=== PATIENT | male | born 1955 | race Hispanic/Latino ===

== ENCOUNTER 2020-09-27 20:17 | Inpatient (IN) | payer MEDICARE ==
[2020-09-27 20:53] LABS: Bacteria/HPF None Seen HPF (None Seen); Bilirubin Negative (Negative); Blood, Urine Trace (Negative); Clarity Clear (Clear); Glucose, Urine (Dipstick) Greater than 1000 mg/dL (Negative); Ketone, Urine Negative (Negative); Leukocyte Negative Leu/uL (Negative); Nitrite Negative (Negative); Protein, Urine (Dipstick) 200 mg/dL (Neg-Trace); RBC/HPF 0-3 HPF (0-3); Specific Gravity, Urine 1.021 (1.002-1.036); Squamous Epithelial None Seen HPF (0-3); Urobilinogen Normal mg/dL (Less than 2); WBC/HPF 0-3 HPF (0-3); pH, Urine 6.5 (5.0-9.0)
[2020-09-27 20:57] LABS: #Basophils 0.1 thou/uL (0.0-0.2); #Eosinphils 0.2 thou/uL (0.0-0.7); #Lymphocytes 1.8 thou/uL (1.20-3.40); #Monocytes 0.6 thou/uL (0.11-0.59); #Neutrophils 4.7 thou/uL (1.40-6.50); %Basophils 1.2 % (0.0-1.0); %Eosinophils 3.3 % (0.0-10.0); %Lymphocytes 24.7 % (21.0-51.0); %Monocytes 8.4 % (0.0-10.0); %Neutrophils 62.5 % (42.0-75.0); Hemoglobin 14.4 g/dL (14.0-18.0); Mean Corpuscular Hemoglobin 30.6 pg (27.0-31.0); Mean Corpuscular Volume 90.1 fL (78.0-98.0); Mean Platelet Volume 9.5 fL (7.4-10.4); Platelet Count 209 thou/uL (130-400); White Blood Cell (WBC) Count 7.5 thou/uL (4.8-10.8)
--- NOTE | 2020-09-27 20:57 | RAD ---
EXAM: Single view of the chest HISTORY: Altered mental status and high blood glucose COMPARISON: 06/11/2003 FINDINGS: Single view of the chest shows a normal sized cardiomediastinal silhouette. There is no lizz dence of consolidation, mass, or pleural effusion. Degenerative changes are seen in the spine. IMPRESSION: No evidence of acute cardiopulmonary disease
[2020-09-27 21:04] LABS: INR-International Normal Ratio 0.9; PTT 27.6 sec (22.9-36.1); Prothrombin Time 12.3 sec (12.0-14.7)
[2020-09-27 21:08] LABS: Amphetamine Not Detected (NotDetected); Barbiturates Screen Not Detected (NotDetected); Benzodiazepine Screen Not Detected (NotDetected); Cocaine Metabolite Screen Not Detected (NotDetected); Medtox Control Line Valid? VALID (VALID); Medtox Reader # READER 4; Methadone Not Detected (NotDetected); Methamphetamine Not Detected (NotDetected); Opiate Screen Not Detected (NotDetected); Oxycodone Screen Not Detected (NotDetected); Phencyclidine (PCP) Not Detected (NotDetected); THC/Cannabinoid Screen Not Detected (NotDetected); Tricyclic Screen Not Detected (NotDetected)
--- NOTE | 2020-09-27 21:08 | CT ---
EXAM: CT brain without contrast HISTORY: Fall and altered mental status COMPARISON: MRI brain 07/16/2020 TECHNIQUE: Multiple contiguous axial images were obtained and a CT of the brain without contrast. FINDINGS: There are scattered hypodensities in the subcortical and periventricular white matter consi stent with small vessel ischemic disease. There is no evidence of hydrocephalus, intracranial hemorrhage, or extra-axial fluid collection. The calvarium and overlying soft tissues are unremarkable. The visualized paranasal sinuses and masto id air cells are well aerated. IMPRESSION: No evidence of acute intracranial abnormality
[2020-09-27 21:16] LABS: ALT (SGPT) 15 U/L (8-55); AST (SGOT) 15 U/L (5-34); Albumin 2.9 g/dL (3.4-4.8); Alkaline Phosphatase 117 U/L (40-110); Anion Gap 17 mmol/L (10-20); BUN (Urea Nitrogen) 19 mg/dL (8.4-25.7); Bilirubin, Total 0.3 mg/dL (0.2-1.2); Calc. Creatinine Clearance 0 mL/min (70-130); Calcium 8.2 mg/dL (7.8-10.44); Carbon Dioxide 18 mmol/L (23-31); Chloride 101 mmol/L (98-107); Estimated GFR-MDRD 37; Globulin 3.2 g/dL (2.4-3.5); Protein, Total 6.1 g/dL (5.8-8.1); Sodium 132 mmol/L (136-145)
[2020-09-27 21:19] LABS: Acetaminophen Less than 6.0 mcg/mL (10.0-30.0); Alcohol Less than 10 mg/dL (Less than 10); CK (CPK) 62 U/L (30-200); Salicylate Less than 8.0 mg/dL (15.0-30.0)
[2020-09-27 21:26] LABS: Glucose 748 mg/dL (80-115)
[2020-09-27 21:57] LABS: Actual Bicarbonate (HCO3v) 16 mEq/L (22-28); Analyzer IN Cardio ER; Base Excess -6.9 mEq/L (-2.0 to +3.0); Calcium, Ionized (venous) 1.02 mmol/L (1.16-1.32); Chloride (VBG) 104 mmol/L (98-106); Hemoglobin (Hb) 15.1 g/dL (12.6-17.4); Potassium (VBG) 3.93 mmol/L (3.70-5.30); Sodium 130.7 mmol/L (133-146); pH (venous) 7.41 (7.32-7.43)
[2020-09-27] MEDS ORDERED: INSULIN REGULAR IN 0.9 % NACL 100 UNIT/100 ML BAG ONE (22:09)
[2020-09-27] MEDS ORDERED: Labetalol HCl 100 MG/20 ML VIAL ONE (22:09)
[2020-09-27] MEDS ORDERED: Insulin Regular 300 UNITS/3 ML VIAL ONE (22:09)
[2020-09-27] MEDS ORDERED: Sodium Chloride 0.9% 1,000 ML IV PRN ×4 (22:14)
[2020-09-27] MEDS ORDERED: Dextrose 5 %-0.45 % NaCl 1,000 ML IV PRN (22:14)
[2020-09-27] MEDS ORDERED: NS 0.9% w/ 20 MEQ KCL 1,000 ML IV PRN ×2 (22:14)
[2020-09-27] MEDS ORDERED: Electrolyte Replacement Protoc 1 EACH EACH IVPB SCH (22:14)
[2020-09-27] MEDS ORDERED: HUMULIN R 100 UNITS in Sodium Chloride 0.9% 100 ML IVPB SCH (22:15)
[2020-09-27] MEDS ORDERED: Ondansetron PF 4 MG/2 ML Vial IVP PRN (22:16)
--- NOTE | 2020-09-27 22:26 | PDOC.BPN ---
- Brief Progress Note Encounter Date: 09/27/20 [id number] dictated
[2020-09-27 23:30] LABS: Lactic Acid 2.8 mmol/L (0.5-2.2)
[2020-09-27 23:31] LABS: Anion Gap 13 mmol/L (10-20); BUN (Urea Nitrogen) 18 mg/dL (8.4-25.7); Calc. Creatinine Clearance 0 mL/min (70-130); Calcium 7.9 mg/dL (7.8-10.44); Carbon Dioxide 19 mmol/L (23-31); Chloride 106 mmol/L (98-107); Estimated GFR-MDRD 42; Glucose 608 mg/dL (80-115); Potassium 3.7 mmol/L (3.5-5.1); Sodium 134 mmol/L (136-145)
[2020-09-27 23:50] LABS: Glucose 593 mg/dL (80-115)
--- NOTE | 2020-09-28 00:07 | HP ---
CHIEF COMPLAINT: Unresponsive. HISTORY OF PRESENT ILLNESS: Mr. 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 The patient's blood sugar was greater than 600. IV was placed and IV fluids was given. The patient also was found to be profoundly hypertensive, nitroglycerin paste was applied. The patient was tachycardic. The patient was afebrile with normal respiratory rate and oxygen saturation. On arrival to the emergency room, the patient was only arousable to voice. In the emergency room, initial blood pressure was 207/155, latest blood pressure is 153/92, lactic acid was elevated at 4.2, sodium is 132, glucose was 748, creatinine 1.86, anion gap is 17. CT of the brain was done, no acute finding. Urinalysis was positive for protein, glucose, and trace blood, otherwise unremarkable. The patient is still lethargic, but able to answer simple questions, slightly confused. IV fluids continued. The patient was given insulin in the emergency room. The patient is being admitted to the hospital for further management. PAST MEDICAL HISTORY: As mentioned above in the history of present illness. PAST SURGICAL HISTORY: 1. Cataract and glaucoma surgeries. 2. LASIK eye surgery, bilateral. SOCIAL HISTORY: No history of smoking, drug use, or alcohol abuse. Lives at home with family. HOME MEDICATIONS: Please see home medication reconciliation form for updated medications. ALLERGIES: ALLERGIC TO LEVEMIR FLEXPEN, TRULICITY, VICTOZA, AND FARXIGA. REVIEW OF SYSTEMS: Unable to obtain. The patient currently is lethargic, slightly confused. PHYSICAL EXAMINATION: GENERAL: The patient is lethargic, slightly confused. VITAL SIGNS: Blood pressure 153/92, pulse is 96, respiratory rate 16, oxygen saturation is 99% on room air, and temperature is 98.2. HEAD AND NECK: Normocephalic and atraumatic. Neck is supple. Mucous membranes dry. CHEST: Fair bilateral air entry. HEART: S1, S2. Regular. ABDOMEN: Soft, nontender. Bowel sounds present. NEUROLOGIC: The patient is lethargic, but opening his eyes. Slightly confused, moving extremities. SKIN: No current rash. MUSCULOSKELETAL: No apparent deformity. GENITOURINARY: No suprapubic tenderness. No flank tenderness. LABORATORY DATA: As mentioned above in history of present illness. IMAGING STUDIES: As mentioned above in history of present illness. ASSESSMENT: 1. Hyperglycemic hyperosmolar diabetic state with altered mental status and decreased responsiveness. 2. Acute encephalopathy, metabolic. 3. Hypertensive urgency/emergency. 4. Coronary artery disease. 5. Right eye blindness due to diabetes. 6. Diabetic neuropathy. PLAN: 1. Admit. 2. Continue with IV fluid hydration. 3. Insulin. 4. Monitor and correct electrolytes. 5. Monitor and treat hypertension. 6. Reconcile home medications. 7. DVT prophylaxis as appropriate. 8. Expected length of stay, 2 midnights or more. 9. Case discussed with the patient's family/daughter and ED physician. Job ID: [id number]
[2020-09-28] MEDS ORDERED: Acetaminophen 325 MG TAB ONE (00:30)
[2020-09-28 01:20] LABS: Glucose 408 mg/dL (80-115); Lactic Acid 2.4 mmol/L (0.5-2.2)
[2020-09-28] MEDS: D5 1/2 NS w/20 mEq KCL 1,000 ML IV PRN ×2 (02:48→07:28)
[2020-09-28 03:27] LABS: Anion Gap 11 mmol/L (10-20); BUN (Urea Nitrogen) 17 mg/dL (8.4-25.7); Calc. Creatinine Clearance 62 mL/min (70-130); Calcium 8.1 mg/dL (7.8-10.44); Carbon Dioxide 21 mmol/L (23-31); Chloride 111 mmol/L (98-107); Estimated GFR-MDRD 50; Glucose 215 mg/dL (80-115); Potassium 3.3 mmol/L (3.5-5.1); Sodium 140 mmol/L (136-145)
[2020-09-28] MEDS ORDERED: Potassium Chloride 40 MEQ in Sodium Chloride 0.9% 250 ML 250 ML IVPB SCH (04:00)
[2020-09-28 07:22] LABS: Glucose 129 mg/dL (80-115)
[2020-09-28 07:24] LABS: Glucose 124 mg/dL (80-115)
[2020-09-28 07:28] LABS: Anion Gap 11 mmol/L (10-20); BUN (Urea Nitrogen) 16 mg/dL (8.4-25.7); Calc. Creatinine Clearance 65 mL/min (70-130); Calcium 7.9 mg/dL (7.8-10.44); Carbon Dioxide 22 mmol/L (23-31); Chloride 112 mmol/L (98-107); Estimated GFR-MDRD 53; Glucose 123 mg/dL (80-115); Potassium 3.7 mmol/L (3.5-5.1); Sodium 141 mmol/L (136-145)
[2020-09-28 08:10] LABS: Glucose 129 mg/dL (80-115)
[2020-09-28 08:56] LABS: SARS-CoV-2 MS2 Positive; SARS-CoV-2 N Gene Negative; SARS-CoV-2 S Gene Negative; SARS-CoV-2 by NAA Not Detected (NotDetected); SARS-CoV-2 orf1ab Negative
[2020-09-28] MEDS ORDERED: Famotidine/PF 20 mg/2ml Vial SLOW IVP SCH (09:00)
[2020-09-28] MEDS: Heparin 5,000 UNITS/ML VIAL SC SCH ×3 (09:37→20:05)
[2020-09-28] MEDS ORDERED: Losartan 25 MG TAB PO STA (10:07)
[2020-09-28] MEDS ORDERED: Metoprolol Tartrate 25 MG TAB PO STA (10:07)
[2020-09-28] MEDS ORDERED: HumaLOG 300 UNITS/3 ML VIAL SC PRN (10:09)
[2020-09-28] MEDS ORDERED: Dextrose 50% Abboject 50 ML SYRINGE SLOW IVP PRN (10:09)
[2020-09-28] MEDS ORDERED: Dextrose 5% in Water 1,000 ML IV PRN (10:09)
[2020-09-28] MEDS ORDERED: Metoprolol Tartrate 25 MG TAB PO SCH (11:15)
[2020-09-28] MEDS ORDERED: Losartan 25 MG TAB PO SCH (11:15)
[2020-09-28] MEDS ORDERED: Insulin Glargine 15 UNITS in Pre-Filled Syringe 1 EACH SC SCH (11:15)
[2020-09-28] MEDS: Sodium Chloride 0.9% 1,000 ML IV SCH ×2 (11:41→23:15)
--- NOTE | 2020-09-28 14:37 | PDOC.HOSPP ---
- Subjective Encounter Date: 09/28/20 Encounter Time: 10:40 Subjective: no sob, is awake and oriented well at bedside no cough or fever or abd pain or nausea - Objective Vital Signs & Weight: Vital Signs (12 hours) Temp Pulse Ox 09/28/20 12:19 98.6 F 09/28/20 07:39 97 09/28/20 07:00 98.0 F 09/28/20 03:34 97.8 F Weight Admit Weight 186 lb 6 oz Weight 186 lb 6 oz I&O: 09/27/20 09/28/20 09/29/20 06:59 06:59 06:59 Intake Total 830.5 Output Total 560 350 Balance 270.5 -350 Result Diagrams: 09/27/20 20:47 09/28/20 06:36 Additional Labs: Accuchecks 09/28/20 09/28/20 09/28/20 12:00 11:41 09:01 POC Glucose 202 H 213 H 185 H 09/28/20 09/28/20 09/28/20 08:22 07:29 06:13 POC Glucose 164 H 148 H 122 H 09/28/20 09/28/20 09/28/20 05:25 04:18 02:59 POC Glucose 79 95 145 H 09/28/20 09/28/20 09/28/20 02:14 01:28 00:27 POC Glucose 229 H 290 H 360 H 09/27/20 09/27/20 09/27/20 23:17 22:05 20:27 POC Glucose 475 H 492 H Greater than 500 H Hospitalist ROS - Medication Medications: Active Medications Generic Name Dose Route Start Last Admin Trade Name Jorgeq PRN Reason Stop Dose Admin Heparin Sodium (Porcine) 5,000 units 09/28/20 09:00 09/28/20 09:37 Heparin 5,000 Units/Ml Vial SC 5,000 units TID VIRGIL Administration Sodium Chloride 1,000 mls @ 75 mls/hr 09/28/20 10:15 09/28/20 11:41 Normal Saline 0.9% IV 09/29/20 12:54 1,000 mls .[id number] VIRGIL Administration - Exam General Appearance: awake alert Eye: anicteric sclera Eye - other findings: right eye blindness ENT: no oropharyngeal lesions, moist mucosa Neck: supple, no JVD Heart: RRR, no murmur Respiratory: no wheezes, no rales Gastrointestinal: soft, non-tender, non-distended, normal bowel sounds Extremities: no cyanosis, 1+ LE edema Neurological: cranial nerve grossly intact, no focal deficits Psychiatric: normal affect, A&O x 3 Hosp A/P (1) DM (diabetes mellitus), type 2, uncontrolled Code(s): E11.65 - TYPE 2 DIABETES MELLITUS WITH HYPERGLYCEMIA Status: Acute Qualifiers: Glycemic state: with hyperglycemia Qualified Code(s): E11.65 - Type 2 diabetes mellitus with hyperglycemia (2) HTN (hypertension) Code(s): I10 - ESSENTIAL (PRIMARY) HYPERTENSION Status: Chronic Qualifiers: Hypertension type: essential hypertension Qualified Code(s): I10 - Essential (primary) hypertension (3) CAD (coronary artery disease) Code(s): I25.10 - ATHSCL HEART DISEASE OF [place] CORONARY ARTERY W/O ANG PCTRS Status: Chronic Qualifiers: Coronary Disease-Associated Artery/Lesion type: [place] artery [place] vs. t ransplanted heart: [place] heart Associated angina: without angina Qualified Code(s): I25.10 - Atherosclerotic heart disease of [place] coronary artery without angina pectoris (4) Dyslipidemia Code(s): E78.5 - HYPERLIPIDEMIA, UNSPECIFIED Status: Chronic (5) DEN (acute kidney injury) Code(s): N17.9 - ACUTE KIDNEY FAILURE, UNSPECIFIED Status: Resolved - Plan is off insulin drip, doing well home dose dm meds, iv fluids, lipitor, cozaar, imdur hemostable transfer to med floor dc plan in am if stable to ambulate as tolerated
[2020-09-28] MEDS ORDERED: cloNIDine 0.1 MG TAB PO PRN (17:14)
[2020-09-28] MEDS ORDERED: Amlodipine 10 MG TAB PO SCH (17:15)
[2020-09-28] MEDS: metFORMIN 500 MG TAB PO SCH (18:17)
[2020-09-28] MEDS: HumaLOG 300 UNITS/3 ML VIAL SC PRN (18:18)
[2020-09-28] MEDS: Brimonidine Tartrate 0.2% Ophth Soln 5 ml Bottle EA EYE SCH ×2 (20:02)
[2020-09-28] MEDS: Metoprolol Tartrate 25 MG TAB PO SCH (20:04)
[2020-09-28] MEDS: Insulin Glargine 15 UNITS in Pre-Filled Syringe 1 EACH SC SCH (20:08)
[2020-09-28] MEDS: Dorzolamide HCl 2% Ophth Soln 10 ml Bottle EA EYE SCH (20:26)
[2020-09-28] MEDS ORDERED: hydrALAZINE 20 MG/ML VIAL SLOW IVP PRN (20:47)
[2020-09-28] MEDS ORDERED: Non-Formulary Item 1 EACH (Dorzolamide Hcl/Pf [Dorzolamide 2% Eye Drop] 10 ML Drops) OP SCH (21:00)
[2020-09-28] MEDS ORDERED: diphenhydrAMINE 25 MG CAP PO SCH (21:00)
[2020-09-28] MEDS ORDERED: Lorazepam 1 MG TAB PO SCH (21:15)
[2020-09-29] MEDS: Brimonidine Tartrate 0.2% Ophth Soln 5 ml Bottle EA EYE SCH ×2 (05:47→12:23)
[2020-09-29 06:41] LABS: Anion Gap 13 mmol/L (10-20); BUN (Urea Nitrogen) 12 mg/dL (8.4-25.7); Calc. Creatinine Clearance 65 mL/min (70-130); Calcium 8.7 mg/dL (7.8-10.44); Carbon Dioxide 20 mmol/L (23-31); Chloride 114 mmol/L (98-107); Estimated GFR-MDRD 53; Glucose 105 mg/dL (80-115); Potassium 3.8 mmol/L (3.5-5.1); Sodium 143 mmol/L (136-145)
[2020-09-29] MEDS ORDERED: traZODone HCl 50 MG TAB PO PRN (06:55)
[2020-09-29 07:27] VITALS: TEMP 97.6
[2020-09-29] MEDS: Insulin Glargine 15 UNITS in Pre-Filled Syringe 1 EACH SC SCH (08:55)
[2020-09-29] MEDS: metFORMIN 500 MG TAB PO SCH (08:57)
[2020-09-29] MEDS ORDERED: Atorvastatin Calcium 40 MG TAB PO SCH (09:00)
[2020-09-29] MEDS: Heparin 5,000 UNITS/ML VIAL SC SCH (09:00)
[2020-09-29] MEDS ORDERED: Non-Formulary Item 1 EACH (Losartan Potassium [Cozaar] 100 MG Tablet) PO SCH (09:00)
[2020-09-29] MEDS ORDERED: Amlodipine 10 MG TAB PO SCH (09:00)
[2020-09-29] MEDS: Dorzolamide HCl 2% Ophth Soln 10 ml Bottle EA EYE SCH (09:00)
[2020-09-29] MEDS ORDERED: Losartan 25 MG TAB PO SCH (09:00)
[2020-09-29] MEDS: Metoprolol Tartrate 25 MG TAB PO SCH (09:01)
--- NOTE | 2020-09-29 11:28 | MRI ---
MRI BRAIN WITHOUT CONTRAST: Date: 09/29/2020 INDICATION: Altered mental status. Question CVA. Correlation made to CT of 09/27/2020. Comparison made to MRI brain dated 07/16/2020. FINDINGS: Moderate cortical atrophy again noted. Moderately severe chronic ischemic white matter changes again noted. No evidence of restricted diffusion. No evidence of acute infarct. No evidence of mass or dre a. Intracranial internal carotid arteries and cerebral arteries exhibit flow-voids. IMPRESSION: Moderate cortical atrophy and moderate chronic ischemic white matter changes appear stable. No acute process. POS: AGW
[2020-09-29] MEDS: HumaLOG 300 UNITS/3 ML VIAL SC PRN (12:27)
[2020-09-29 13:00] VITALS: BP 114/74
--- NOTE | 2020-09-29 15:02 | DIS ---
DATE OF ADMISSION: 09/27/2020 DATE OF DISCHARGE: 09/29/2020 DISCHARGE DISPOSITION: To home. PRIMARY DISCHARGE DIAGNOSES: Diabetes mellitus, type 2, uncontrolled on admission, resolved. Brief psychosis, resolved. Acute kidney injury, resolved. Hyperosmolar state with diabetes mellitus type 2, resolved. SECONDARY DISCHARGE DIAGNOSES: Coronary artery disease, hypertension, and dyslipidemia. PROCEDURES DONE DURING HOSPITALIZATION: CT brain done, showed no acute intracranial abnormality. MRI brain showed no acute process. There was moderate cortical atrophy and moderate chronic ischemic white matter changes. Chest x-ray done, showed no acute cardiopulmonary process. H and H 14 and 42 and platelet count 209. COVID-19 PCR was not detected on 09/27/2020. Urine drug screen negative. BUN 12, creatinine 1.3 on the day of discharge. Serum sugar was 748 on the day of admission. BUN 19, creatinine 1.8 on the day of admission. DISCHARGE MEDICATIONS: The patient to continue: 1. Lantus 40 units subcu q.p.m. 2. Metformin 500 mg p.o. twice daily. 3. Imdur extended release 30 mg p.o. daily. 4. Cozaar 100 mg p.o. daily. 5. Brimonidine and dorzolamide eyedrops as before. 6. Lipitor 40 mg p.o. daily. 7. Lopressor 25 mg twice daily. 8. Norvasc 10 mg p.o. daily. 9. Protonix 40 mg p.o. daily. ALLERGIES: ALLERGIC TO DAPAGLIFLOZIN, DULAGLUTIDE, DETEMIR, AND LIRAGLUTIDE. DISCHARGE PLAN: The patient has been advised to check blood pressure, pulse, and fingerstick glucose twice daily and record for 10 days. To follow up with his primary care physician, Dr. Godoy in 1 week. BRIEF COURSE DURING HOSPITALIZATION: The patient initially was brought to emergency room as he was found unresponsive by family. His initial fingerstick glucose was 600. Serum sugars were 748. The patient was placed on insulin drip and was admitted to ICU. He has had a CT brain and chest x-ray done, which did not reveal any acute abnormalities. The patient was aggressively hydrated. He has responded well to above. On the 16th night, the patient got agitated and had brief psychosis, which got resolved by morning. He has had MRI brain for completion, which did not reveal any acute intracranial abnormality. The patient has cortical atrophy and chronic ischemic white matter changes. He is hemodynamically stable, ambulating, and eating well prior to discharge. I have given complete updates to his and daughter prior to discharge. Please note, I have seen and examined the patient on the day of discharge. Job ID: [id number]
== END 2020-09-29 13:12 | disposition home or self-care (01) | DRG 637 ==
LOC: ERS 20:17 → ERHOLD 21:58 → IMCU/EMU 09-28 02:14 → T4-B 09-28 14:53
PROVIDERS: ADMIT Internal Medicine; ATTEND Internal Medicine
DX: E11.00 Type 2 diabetes mellitus with hyperosmolarity without nonketotic hyperglycemic-hyperosmolar coma (NKHHC) (principal); G93.41 Metabolic encephalopathy; F23 Brief psychotic disorder; I16.1 Hypertensive emergency; N17.9 Acute kidney failure, unspecified; I10 Essential (primary) hypertension; I25.10 Atherosclerotic heart disease of native coronary artery without angina pectoris; E78.5 Hyperlipidemia, unspecified; Z20.828 Contact with and (suspected) exposure to other viral communicable diseases; E78.00 Pure hypercholesterolemia, unspecified; H54.40 Blindness, one eye, unspecified eye; E11.40 Type 2 diabetes mellitus with diabetic neuropathy, unspecified; E11.39 Type 2 diabetes mellitus with other diabetic ophthalmic complication; Z88.8 Allergy status to other drugs, medicaments and biological substances; Z28.21 Immunization not carried out because of patient refusal; Z98.42 Cataract extraction status, left eye; Z98.41 Cataract extraction status, right eye; Z79.899 Other long term (current) drug therapy; Z79.4 Long term (current) use of insulin
CPT/HCPCS: 36415; 36416; 70450; 70551; 71045; 80048; 80053; 80306; 80307; 81003; 81015; 82550; 82805; 82947; 83605; 84443; 85025; 85610; 85730; 87635; 93005; 96365; 96366; 96376; J0360; J1644; J1815; J3480; J7050; Q0163; S0028; U0003

== ENCOUNTER 2022-08-25 10:29 | Inpatient (IN) | payer MEDICARE ==
[2022-08-25] MEDS ORDERED: CEFAZOLIN 2 GM in Sodium Chloride 0.9% 100 ML IVPB SCH (12:15)
[2022-08-25 12:58] LABS: #Basophils 0.1 thou/uL (0.0-0.2); #Eosinphils 0.3 thou/uL (0.0-0.7); #Lymphocytes 1.5 thou/uL (1.20-3.40); #Monocytes 0.8 thou/uL (0.11-0.59); #Neutrophils 8.3 thou/uL (1.40-6.50); %Basophils 0.7 % (0.0-1.0); %Eosinophils 2.8 % (0.0-10.0); %Monocytes 6.9 % (0.0-10.0); %Neutrophils 75.6 % (42.0-75.0); Hemoglobin 11.4 g/dL (14.0-18.0); Mean Corpuscular HGB CONC 32.9 g/dL (32.0-36.0); Mean Corpuscular Hemoglobin 30.7 pg (27.0-31.0); Mean Corpuscular Volume 93.1 fL (78.0-98.0); Platelet Count 187 thou/uL (130-400); RBC Distribution Width 13.2 % (11.5-14.5); Red Blood Cell (RBC) Count 3.71 mill/uL (4.70-6.10)
[2022-08-25] MEDS ORDERED: Ondansetron PF 4 MG/2 ML Vial IVP PRN (13:09)
[2022-08-25] MEDS ORDERED: Dextrose 5% in Water 1,000 ML IV PRN (13:13)
[2022-08-25] MEDS ORDERED: Dextrose 50% Abboject 50 ML SYRINGE SLOW IVP PRN (13:13)
[2022-08-25 13:44] LABS: ALT (SGPT) 21 U/L (8-55); AST (SGOT) 56 U/L (5-34); Albumin 2.4 g/dL (3.4-4.8); Alkaline Phosphatase 139 U/L (40-110); Anion Gap 13 mmol/L (10-20); BUN (Urea Nitrogen) 49 mg/dL (8.4-25.7); Bilirubin, Total 0.4 mg/dL (0.2-1.2); Calc. Creatinine Clearance 0 mL/min (70-130); Carbon Dioxide 18 mmol/L (23-31); Chloride 112 mmol/L (98-107); Estimated GFR 9; Globulin 4.1 g/dL (2.4-3.5); Glucose 94 mg/dL (80-115); Potassium 4.4 mmol/L (3.5-5.1); Protein, Total 6.5 g/dL (5.8-8.1); Sodium 139 mmol/L (136-145)
[2022-08-25 13:48] LABS: HBSAg Index 0.19 S/CO (0-0.99); Hep B Core Total Ab Non-Reactive (NonReactive); Hep B Core Total Index 0.11 S/CO (0-0.79); Hep B Surf Ag Non-Reactive S/CO (NonReactive); Hep C IgG Ab Non-Reactive (NonReactive); Hep C Index 0.28 S/CO (0-0.79)
[2022-08-25 13:55] LABS: HBSAB Concentration 43.38 mIU/mL; Hep B Surf AB Reactive (NonReactive)
[2022-08-25] MEDS ORDERED: hydrALAZINE 20 MG/ML VIAL SLOW IVP PRN (14:00)
[2022-08-25] MEDS ORDERED: FLU VACC QS2022-23(65YR UP)/PF 240 MCG/0.7 ML SYRINGE IM ONE (15:15)
[2022-08-25] MEDS ORDERED: fentaNYL PF 100 MCG/2 ML SYRINGE ONE (15:31)
[2022-08-25] MEDS ORDERED: Midazolam HCl 2 mg/2 ml Vial ONE (15:31)
[2022-08-25] MEDS ORDERED: Heparin 10,000 UNITS/ 10 ML VIAL ONE (15:41)
[2022-08-25] MEDS ORDERED: Bupivacaine 0.25% HCL 30 ML VIAL ONE (15:41)
[2022-08-25] MEDS ORDERED: EPINEPHrine 1 MG/ML AMP ONE (15:41)
[2022-08-25] MEDS ORDERED: Lidocaine 2% PF 5 ML VIAL ONE (15:41)
[2022-08-25] MEDS ORDERED: Sodium Chloride 0.9% 100 ML ONE (15:51)
[2022-08-25] MEDS ORDERED: CEFAZOLIN 2 GM VIAL ONE (15:51)
[2022-08-25] MEDS ORDERED: PROPOFOL 200 MG/20 ML VIAL ONE (15:58)
[2022-08-25] MEDS ORDERED: PHENYLEPHRINE-NS 100 MCG/ML 10 ML SYRINGE ONE (15:58)
[2022-08-25] MEDS ORDERED: Ondansetron PF 4 MG/2 ML Vial ONE (15:58)
[2022-08-25] MEDS ORDERED: Ondansetron HCl/PF 4 MG/2 ML Vial IVP PRN (16:56)
[2022-08-25] MEDS ORDERED: Tuberculin PPD 0.1 ML VIAL I-DERMAL SCH (17:00)
[2022-08-26 04:12] LABS: #Basophils 0.1 thou/uL (0.0-0.2); #Eosinphils 0.3 thou/uL (0.0-0.7); #Lymphocytes 1.4 thou/uL (1.20-3.40); #Monocytes 0.8 thou/uL (0.11-0.59); #Neutrophils 8.1 thou/uL (1.40-6.50); %Basophils 0.7 % (0.0-1.0); %Eosinophils 2.6 % (0.0-10.0); %Lymphocytes 12.7 % (21.0-51.0); %Monocytes 7.9 % (0.0-10.0); %Neutrophils 76.2 % (42.0-75.0); Hemoglobin 10.8 g/dL (14.0-18.0); Mean Corpuscular HGB CONC 33.8 g/dL (32.0-36.0); Mean Corpuscular Hemoglobin 31.3 pg (27.0-31.0); Mean Corpuscular Volume 92.4 fL (78.0-98.0); Platelet Count 178 thou/uL (130-400); RBC Distribution Width 13.2 % (11.5-14.5); Red Blood Cell (RBC) Count 3.46 mill/uL (4.70-6.10); White Blood Cell (WBC) Count 10.7 thou/uL (4.8-10.8)
[2022-08-26 04:37] LABS: Anion Gap 16 mmol/L (10-20); BUN (Urea Nitrogen) 27 mg/dL (8.4-25.7); Calc. Creatinine Clearance 21 mL/min (70-130); Calcium 7.6 mg/dL (7.8-10.44); Carbon Dioxide 20 mmol/L (23-31); Chloride 105 mmol/L (98-107); Estimated GFR 17; Glucose 110 mg/dL (80-115); Potassium 3.6 mmol/L (3.5-5.1); Sodium 137 mmol/L (136-145)
[2022-08-26] MEDS ORDERED: Heparin 10,000 UNITS/ 10 ML VIAL ONE (09:21)
[2022-08-26] MEDS: Carvedilol 25 MG TAB PO SCH (16:26)
[2022-08-26] MEDS: HumaLOG 300 UNITS/3 ML VIAL SC PRN (17:04)
[2022-08-26] MEDS: Atorvastatin Calcium 40 MG TAB PO SCH (20:53)
[2022-08-27 04:29] LABS: #Basophils 0.1 thou/uL (0.0-0.2); #Eosinphils 0.3 thou/uL (0.0-0.7); #Monocytes 0.9 thou/uL (0.11-0.59); #Neutrophils 5.4 thou/uL (1.40-6.50); %Basophils 0.7 % (0.0-1.0); %Eosinophils 3.9 % (0.0-10.0); %Lymphocytes 22.4 % (21.0-51.0); %Monocytes 10.7 % (0.0-10.0); %Neutrophils 62.3 % (42.0-75.0); Hemoglobin 9.2 g/dL (14.0-18.0); Mean Corpuscular HGB CONC 32.5 g/dL (32.0-36.0); Mean Corpuscular Volume 92.3 fL (78.0-98.0); Mean Platelet Volume 9.3 fL (7.4-10.4); Platelet Count 151 thou/uL (130-400); RBC Distribution Width 13.3 % (11.5-14.5); Red Blood Cell (RBC) Count 3.08 mill/uL (4.70-6.10); White Blood Cell (WBC) Count 8.7 thou/uL (4.8-10.8)
[2022-08-27 04:39] LABS: Anion Gap 11 mmol/L (10-20); BUN (Urea Nitrogen) 32 mg/dL (8.4-25.7); Calc. Creatinine Clearance 15 mL/min (70-130); Calcium 7.2 mg/dL (7.8-10.44); Carbon Dioxide 23 mmol/L (23-31); Chloride 106 mmol/L (98-107); Estimated GFR 11; Glucose 181 mg/dL (80-115); Potassium 3.5 mmol/L (3.5-5.1); Sodium 136 mmol/L (136-145)
[2022-08-27] MEDS: Carvedilol 25 MG TAB PO SCH ×2 (08:51→16:19)
[2022-08-27] MEDS ORDERED: Heparin 10,000 UNITS/ 10 ML VIAL ONE (09:26)
[2022-08-27] MEDS: Aspirin 81 mg Enteric Coated Tablet PO SCH (12:36)
[2022-08-27] MEDS: Furosemide 40 MG TAB PO SCH (12:37)
[2022-08-27] MEDS: HumaLOG 300 UNITS/3 ML VIAL SC PRN (16:19)
[2022-08-27] MEDS: Atorvastatin Calcium 40 MG TAB PO SCH (20:54)
[2022-08-27] MEDS ORDERED: READ PPD TEST SITE PO SCH (21:00)
[2022-08-28 05:48] LABS: #Basophils 0.1 thou/uL (0.0-0.2); #Eosinphils 0.3 thou/uL (0.0-0.7); #Lymphocytes 1.6 thou/uL (1.20-3.40); #Monocytes 0.9 thou/uL (0.11-0.59); #Neutrophils 6.2 thou/uL (1.40-6.50); %Basophils 0.6 % (0.0-1.0); %Eosinophils 3.5 % (0.0-10.0); %Lymphocytes 17.4 % (21.0-51.0); %Monocytes 10.2 % (0.0-10.0); %Neutrophils 68.3 % (42.0-75.0); Hemoglobin 9.8 g/dL (14.0-18.0); Mean Corpuscular HGB CONC 33.4 g/dL (32.0-36.0); Mean Corpuscular Hemoglobin 30.7 pg (27.0-31.0); Mean Platelet Volume 9.1 fL (7.4-10.4); Platelet Count 150 thou/uL (130-400); RBC Distribution Width 13.3 % (11.5-14.5); White Blood Cell (WBC) Count 9.1 thou/uL (4.8-10.8)
[2022-08-28 06:14] LABS: Anion Gap 11 mmol/L (10-20); BUN (Urea Nitrogen) 20 mg/dL (8.4-25.7); Calc. Creatinine Clearance 18 mL/min (70-130); Calcium 7.4 mg/dL (7.8-10.44); Carbon Dioxide 27 mmol/L (23-31); Chloride 100 mmol/L (98-107); Estimated GFR 15; Glucose 170 mg/dL (80-115); Potassium 3.8 mmol/L (3.5-5.1); Sodium 134 mmol/L (136-145)
[2022-08-28] MEDS: Amlodipine 5 MG TAB PO SCH (08:20)
[2022-08-28] MEDS: Aspirin 81 mg Enteric Coated Tablet PO SCH (08:20)
[2022-08-28] MEDS: Carvedilol 25 MG TAB PO SCH ×2 (08:20→16:27)
[2022-08-28] MEDS: Furosemide 40 MG TAB PO SCH (08:20)
[2022-08-28] MEDS: HumaLOG 300 UNITS/3 ML VIAL SC PRN ×2 (16:27→20:38)
[2022-08-28] MEDS: Atorvastatin Calcium 40 MG TAB PO SCH (20:37)
[2022-08-29 04:40] LABS: #Basophils 0.1 thou/uL (0.0-0.2); #Eosinphils 0.3 thou/uL (0.0-0.7); #Lymphocytes 1.8 thou/uL (1.20-3.40); #Neutrophils 6.5 thou/uL (1.40-6.50); %Basophils 0.6 % (0.0-1.0); %Eosinophils 3.3 % (0.0-10.0); %Lymphocytes 18.6 % (21.0-51.0); %Monocytes 9.9 % (0.0-10.0); %Neutrophils 67.8 % (42.0-75.0); Hemoglobin 9.4 g/dL (14.0-18.0); Mean Corpuscular Hemoglobin 31.3 pg (27.0-31.0); Mean Corpuscular Volume 92.1 fL (78.0-98.0); Mean Platelet Volume 9.1 fL (7.4-10.4); Platelet Count 140 thou/uL (130-400); White Blood Cell (WBC) Count 9.7 thou/uL (4.8-10.8)
[2022-08-29 04:58] LABS: Anion Gap 14 mmol/L (10-20); BUN (Urea Nitrogen) 27 mg/dL (8.4-25.7); Calc. Creatinine Clearance 14 mL/min (70-130); Calcium 7.1 mg/dL (7.8-10.44); Carbon Dioxide 24 mmol/L (23-31); Chloride 99 mmol/L (98-107); Estimated GFR 11; Glucose 194 mg/dL (80-115); Potassium 3.7 mmol/L (3.5-5.1); Sodium 133 mmol/L (136-145)
[2022-08-29] MEDS: HumaLOG 300 UNITS/3 ML VIAL SC PRN ×2 (05:27→20:15)
[2022-08-29] MEDS ORDERED: CEFAZOLIN 2 GM in Sodium Chloride 0.9% 100 ML IVPB SCH (06:00)
[2022-08-29] MEDS: Carvedilol 25 MG TAB PO SCH ×2 (07:24→17:58)
[2022-08-29] MEDS: Aspirin 81 mg Enteric Coated Tablet PO SCH (07:36)
[2022-08-29] MEDS: Furosemide 40 MG TAB PO SCH (07:36)
[2022-08-29] MEDS: Amlodipine 5 MG TAB PO SCH (07:37)
[2022-08-29] MEDS ORDERED: Heparin 5,000 UNITS/ML VIAL ONE (08:30)
[2022-08-29] MEDS ORDERED: EPINEPHrine 1 MG/ML AMP ONE (08:30)
[2022-08-29] MEDS ORDERED: Protamine Sulfate 50 MG/5 ML VIAL ONE (08:30)
[2022-08-29] MEDS ORDERED: Bupivacaine PF 0.5% 30 ML VIAL ONE (08:30)
[2022-08-29] MEDS ORDERED: Heparin 10,000 UNITS/ 10 ML VIAL ONE ×2 (08:30)
[2022-08-29] MEDS ORDERED: Bupivacaine 0.25% HCL 30 ML VIAL ONE (08:42)
[2022-08-29] MEDS ORDERED: Lidocaine 2% PF 5 ML VIAL ONE (08:42)
[2022-08-29] MEDS ORDERED: fentaNYL PF 100 MCG/2 ML SYRINGE ONE (08:47)
[2022-08-29] MEDS ORDERED: Sodium Chloride 0.9% 100 ML ONE (08:57)
[2022-08-29] MEDS ORDERED: CEFAZOLIN 2 GM VIAL ONE (08:57)
[2022-08-29] MEDS ORDERED: Dexamethasone 20 MG/5 ML VIAL ONE (10:24)
[2022-08-29] MEDS ORDERED: Rocuronium Bromide 10 MG/ML (10ML VIAL) ONE (10:24)
[2022-08-29] MEDS ORDERED: NEOSTIGMINE 3 MG/3 ML SYR 3 MG/3 ML SYRINGE ONE (10:24)
[2022-08-29] MEDS ORDERED: Glycopyrrolate 0.2 MG/ML 5 ML SYRINGE ONE (10:24)
[2022-08-29] MEDS ORDERED: PROPOFOL 200 MG/20 ML VIAL ONE (10:24)
[2022-08-29] MEDS ORDERED: Ondansetron PF 4 MG/2 ML Vial ONE (10:24)
[2022-08-29] MEDS ORDERED: PHENYLEPHRINE-NS 100 MCG/ML 10 ML SYRINGE ONE (10:24)
[2022-08-29] MEDS ORDERED: Promethazine HCl 25 MG/ML VIAL IM PRN (12:39)
[2022-08-29] MEDS ORDERED: Ondansetron HCl/PF 4 MG/2 ML Vial IVP PRN (12:39)
[2022-08-29] MEDS ORDERED: Promethazine HCl 25 MG/ML VIAL IVPB PRN (12:39)
[2022-08-29] MEDS ORDERED: traMADol HCl 50 MG TAB PO PRN (13:01)
[2022-08-29] MEDS ORDERED: Acetaminophen 500 MG TAB PO PRN (13:01)
[2022-08-29] MEDS ORDERED: Acetaminophen 500 MG TAB PO SCH (13:15)
[2022-08-29] MEDS: Atorvastatin Calcium 40 MG TAB PO SCH (19:56)
[2022-08-30] MEDS: HumaLOG 300 UNITS/3 ML VIAL SC PRN ×2 (05:46→21:25)
[2022-08-30 06:36] LABS: #Basophils 0.1 thou/uL (0.0-0.2); #Lymphocytes 1.9 thou/uL (1.20-3.40); #Monocytes 1.1 thou/uL (0.11-0.59); #Neutrophils 10.8 thou/uL (1.40-6.50); %Basophils 0.5 % (0.0-1.0); %Eosinophils 0.3 % (0.0-10.0); %Lymphocytes 13.8 % (21.0-51.0); %Neutrophils 77.6 % (42.0-75.0); Hemoglobin 9.3 g/dL (14.0-18.0); Mean Corpuscular HGB CONC 32.7 g/dL (32.0-36.0); Mean Corpuscular Hemoglobin 30.6 pg (27.0-31.0); Mean Corpuscular Volume 93.5 fL (78.0-98.0); Mean Platelet Volume 10.1 fL (7.4-10.4); Platelet Count 176 thou/uL (130-400); RBC Distribution Width 13.2 % (11.5-14.5); Red Blood Cell (RBC) Count 3.05 mill/uL (4.70-6.10); White Blood Cell (WBC) Count 13.9 thou/uL (4.8-10.8)
[2022-08-30 06:48] LABS: Anion Gap 18 mmol/L (10-20); BUN (Urea Nitrogen) 23 mg/dL (8.4-25.7); Calc. Creatinine Clearance 19 mL/min (70-130); Calcium 7.5 mg/dL (7.8-10.44); Carbon Dioxide 23 mmol/L (23-31); Chloride 98 mmol/L (98-107); Estimated GFR 15; Glucose 227 mg/dL (80-115); Potassium 4.9 mmol/L (3.5-5.1); Sodium 134 mmol/L (136-145)
[2022-08-30] MEDS: Amlodipine 5 MG TAB PO SCH (08:04)
[2022-08-30] MEDS: Furosemide 40 MG TAB PO SCH (08:04)
[2022-08-30] MEDS: Aspirin 81 mg Enteric Coated Tablet PO SCH (08:05)
[2022-08-30] MEDS: Carvedilol 25 MG TAB PO SCH ×2 (08:05→18:05)
[2022-08-30] MEDS ORDERED: Morphine 4 MG/ML VIAL SLOW IVP PRN (16:00)
[2022-08-30] MEDS: Sodium Chloride 0.9% 1,000 ML IV SCH (18:30)
[2022-08-30] MEDS: Polyethylene Glycol 3350 17 GM Packet PO SCH (21:21)
[2022-08-30] MEDS: Atorvastatin Calcium 40 MG TAB PO SCH (21:21)
[2022-08-30] MEDS: Senokot S 8.6-50 MG TAB PO SCH (21:22)
[2022-08-31] MEDS: HumaLOG 300 UNITS/3 ML VIAL SC PRN ×2 (05:41→17:08)
[2022-08-31] MEDS: Amlodipine 5 MG TAB PO SCH (09:05)
[2022-08-31] MEDS: Carvedilol 25 MG TAB PO SCH ×2 (09:05→17:08)
[2022-08-31] MEDS: Aspirin 81 mg Enteric Coated Tablet PO SCH (09:05)
[2022-08-31] MEDS: Furosemide 40 MG TAB PO SCH (09:05)
[2022-08-31] MEDS: Senokot S 8.6-50 MG TAB PO SCH ×2 (09:06→20:28)
[2022-08-31] MEDS ORDERED: Heparin 10,000 UNITS/ 10 ML VIAL ONE (09:34)
[2022-08-31] MEDS: Sodium Chloride 0.9% 1,000 ML IV SCH (14:04)
[2022-08-31 15:09] VITALS: BMI 27.8
[2022-08-31] MEDS: D5W-AA 4.25% with LYTES 1,000 ML IV SCH (18:50)
[2022-08-31] MEDS ORDERED: Acetaminophen 650 MG Suppository PR PRN (19:42)
[2022-08-31] MEDS ORDERED: Acetaminophen 650 MG Suppository PR SCH (19:45)
[2022-08-31] MEDS ORDERED: Acetaminophen 325 MG Suppository PR PRN (19:59)
[2022-08-31] MEDS ORDERED: Acetaminophen 325 MG Suppository PR SCH (20:00)
[2022-08-31] MEDS: levETIRAcetam 500 MG/5 ML VIAL SLOW IVP SCH (20:25)
[2022-08-31] MEDS: Atorvastatin Calcium 40 MG TAB PO SCH (20:28)
[2022-08-31] MEDS: Polyethylene Glycol 3350 17 GM Packet PO SCH (20:28)
[2022-08-31] MEDS ORDERED: levETIRAcetam 500 MG TAB PO SCH (21:00)
[2022-09-01] MEDS: HumaLOG 300 UNITS/3 ML VIAL SC PRN ×4 (06:26→21:35)
[2022-09-01] MEDS: Aspirin 300 MG Suppository PR SCH (09:16)
[2022-09-01] MEDS: levETIRAcetam 500 MG/5 ML VIAL SLOW IVP SCH ×2 (09:16→21:37)
[2022-09-01] MEDS: Furosemide 40 MG TAB PO SCH (09:40)
[2022-09-01] MEDS: Carvedilol 25 MG TAB PO SCH ×2 (09:40→17:58)
[2022-09-01] MEDS: Amlodipine 5 MG TAB PO SCH (09:40)
[2022-09-01] MEDS: Senokot S 8.6-50 MG TAB PO SCH ×2 (09:41→21:38)
[2022-09-01] MEDS: D5W-AA 4.25% with LYTES 1,000 ML IV SCH (16:33)
[2022-09-01] MEDS ORDERED: levETIRAcetam in NS 250 MG in Premix Bag 1 BAG IVPB SCH (21:00)
[2022-09-01] MEDS: Atorvastatin Calcium 40 MG TAB PO SCH (21:38)
[2022-09-01] MEDS: Polyethylene Glycol 3350 17 GM Packet PO SCH (21:38)
[2022-09-02] MEDS ORDERED: Scopolamine 1.5 mg/72 hour Patch TOP PRN (01:28)
[2022-09-02 05:42] LABS: Hemoglobin 8.6 g/dL (14.0-18.0)
[2022-09-02 06:14] LABS: Anion Gap 15 mmol/L (10-20); BUN (Urea Nitrogen) 47 mg/dL (8.4-25.7); Calc. Creatinine Clearance 13 mL/min (70-130); Calcium 7.7 mg/dL (7.8-10.44); Carbon Dioxide 24 mmol/L (23-31); Chloride 98 mmol/L (98-107); Estimated GFR 9; Glucose 309 mg/dL (80-115); Potassium 3.9 mmol/L (3.5-5.1); Sodium 133 mmol/L (136-145)
[2022-09-02] MEDS: HumaLOG 300 UNITS/3 ML VIAL SC PRN ×3 (06:27→20:28)
[2022-09-02] MEDS: levETIRAcetam 500 MG/5 ML VIAL SLOW IVP SCH ×2 (08:13→20:28)
[2022-09-02] MEDS: Aspirin 300 MG Suppository PR SCH (08:14)
[2022-09-02] MEDS: Senokot S 8.6-50 MG TAB PO SCH ×2 (08:20→20:48)
[2022-09-02] MEDS: Furosemide 40 MG TAB PO SCH (08:21)
[2022-09-02] MEDS: Carvedilol 25 MG TAB PO SCH ×2 (08:21→16:12)
[2022-09-02] MEDS: Amlodipine 5 MG TAB PO SCH (08:21)
[2022-09-02] MEDS: D5W-AA 4.25% with LYTES 1,000 ML IV SCH (13:12)
[2022-09-02] MEDS ORDERED: Heparin 10,000 UNITS/ 10 ML VIAL ONE (15:20)
[2022-09-02] MEDS: Atorvastatin Calcium 40 MG TAB PO SCH (20:48)
[2022-09-02] MEDS: Polyethylene Glycol 3350 17 GM Packet PO SCH (20:48)
[2022-09-03] MEDS: HumaLOG 300 UNITS/3 ML VIAL SC PRN ×4 (06:13→21:10)
[2022-09-03 07:07] LABS: Anion Gap 14 mmol/L (10-20); BUN (Urea Nitrogen) 30 mg/dL (8.4-25.7); Calc. Creatinine Clearance 19 mL/min (70-130); Calcium 7.4 mg/dL (7.8-10.44); Carbon Dioxide 25 mmol/L (23-31); Chloride 99 mmol/L (98-107); Estimated GFR 15; Glucose 267 mg/dL (80-115); Potassium 4.1 mmol/L (3.5-5.1); Sodium 134 mmol/L (136-145)
[2022-09-03] MEDS: Carvedilol 25 MG TAB PO SCH ×2 (08:33→17:47)
[2022-09-03] MEDS: Aspirin 300 MG Suppository PR SCH (09:02)
[2022-09-03] MEDS: levETIRAcetam 500 MG/5 ML VIAL SLOW IVP SCH ×2 (09:02→21:30)
[2022-09-03] MEDS: D5W-AA 4.25% with LYTES 1,000 ML IV SCH (09:03)
[2022-09-03] MEDS: Amlodipine 5 MG TAB PO SCH (09:03)
[2022-09-03] MEDS: Senokot S 8.6-50 MG TAB PO SCH ×2 (09:04→19:40)
[2022-09-03] MEDS: Furosemide 40 MG TAB PO SCH (09:04)
[2022-09-03] MEDS ORDERED: Insulin Glargine 30 UNITS/0.3 ML VIAL SC SCH (12:45)
[2022-09-03] MEDS: Polyethylene Glycol 3350 17 GM Packet PO SCH (19:40)
[2022-09-03] MEDS: Atorvastatin Calcium 40 MG TAB PO SCH (19:40)
[2022-09-04] MEDS: D5W-AA 4.25% with LYTES 1,000 ML IV SCH (05:01)
[2022-09-04] MEDS: HumaLOG 300 UNITS/3 ML VIAL SC PRN ×2 (06:21→20:38)
[2022-09-04] MEDS: Carvedilol 25 MG TAB PO SCH ×2 (08:31→17:49)
[2022-09-04] MEDS: levETIRAcetam 500 MG/5 ML VIAL SLOW IVP SCH ×2 (08:35→20:32)
[2022-09-04] MEDS: Aspirin 300 MG Suppository PR SCH (08:37)
[2022-09-04] MEDS ORDERED: Insulin Glargine 30 UNITS/0.3 ML VIAL SC SCH ×3 (09:00→14:30)
[2022-09-04] MEDS: Furosemide 40 MG TAB PO SCH (09:58)
[2022-09-04] MEDS: Amlodipine 5 MG TAB PO SCH (09:58)
[2022-09-04] MEDS: Senokot S 8.6-50 MG TAB PO SCH (09:58)
[2022-09-05] MEDS: Senokot S 8.6-50 MG TAB PO SCH ×3 (00:34→19:30)
[2022-09-05] MEDS: Polyethylene Glycol 3350 17 GM Packet PO SCH ×2 (00:34→19:30)
[2022-09-05] MEDS: Atorvastatin Calcium 40 MG TAB PO SCH ×2 (00:34→19:29)
[2022-09-05] MEDS: D5W-AA 4.25% with LYTES 1,000 ML IV SCH (00:46)
[2022-09-05] MEDS: HumaLOG 300 UNITS/3 ML VIAL SC PRN ×2 (06:37→16:52)
[2022-09-05] MEDS: Carvedilol 25 MG TAB PO SCH ×2 (08:23→17:28)
[2022-09-05] MEDS: Amlodipine 5 MG TAB PO SCH (08:23)
[2022-09-05] MEDS: Furosemide 40 MG TAB PO SCH (08:24)
[2022-09-05] MEDS: levETIRAcetam 500 MG/5 ML VIAL SLOW IVP SCH ×2 (10:05→20:20)
[2022-09-05] MEDS: Aspirin 300 MG Suppository PR SCH (10:05)
[2022-09-05] MEDS ORDERED: Insulin Glargine 30 UNITS/0.3 ML VIAL SC SCH (10:30)
[2022-09-05 11:32] LABS: ALT (SGPT) 7 U/L (8-55); AST (SGOT) 46 U/L (5-34); Albumin 2.1 g/dL (3.4-4.8); Alkaline Phosphatase 87 U/L (40-110); Anion Gap 14 mmol/L (10-20); BUN (Urea Nitrogen) 68 mg/dL (8.4-25.7); Bilirubin, Total 0.5 mg/dL (0.2-1.2); Calc. Creatinine Clearance 13 mL/min (70-130); Calcium 7.4 mg/dL (7.8-10.44); Carbon Dioxide 25 mmol/L (23-31); Chloride 99 mmol/L (98-107); Estimated GFR 10; Globulin 3.3 g/dL (2.4-3.5); Glucose 257 mg/dL (80-115); Potassium 4.8 mmol/L (3.5-5.1); Protein, Total 5.4 g/dL (5.8-8.1); Sodium 133 mmol/L (136-145)
[2022-09-05] MEDS ORDERED: Heparin 10,000 UNITS/ 10 ML VIAL ONE (15:25)
[2022-09-06 05:18] LABS: #Basophils 0.1 thou/uL (0.0-0.2); #Eosinphils 0.4 thou/uL (0.0-0.7); #Lymphocytes 1.3 thou/uL (1.20-3.40); #Monocytes 0.8 thou/uL (0.11-0.59); #Neutrophils 6.1 thou/uL (1.40-6.50); %Basophils 0.7 % (0.0-1.0); %Eosinophils 4.3 % (0.0-10.0); %Lymphocytes 15.4 % (21.0-51.0); %Neutrophils 70.5 % (42.0-75.0); Hemoglobin 8.2 g/dL (14.0-18.0); Mean Corpuscular HGB CONC 32.7 g/dL (32.0-36.0); Mean Corpuscular Hemoglobin 30.2 pg (27.0-31.0); Mean Corpuscular Volume 92.3 fl (78.0-98.0); Mean Platelet Volume 8.8 fL (7.4-10.4); Platelet Count 184 thou/uL (130-400); RBC Distribution Width 13.5 % (11.5-14.5); Red Blood Cell (RBC) Count 2.73 mill/uL (4.70-6.10); White Blood Cell (WBC) Count 8.7 thou/uL (4.8-10.8)
[2022-09-06 05:44] LABS: Anion Gap 12 mmol/L (10-20); BUN (Urea Nitrogen) 33 mg/dL (8.4-25.7); Calc. Creatinine Clearance 20 mL/min (70-130); Calcium 7.5 mg/dL (7.8-10.44); Carbon Dioxide 28 mmol/L (23-31); Chloride 97 mmol/L (98-107); Estimated GFR 17; Glucose 189 mg/dL (80-115); Sodium 133 mmol/L (136-145)
[2022-09-06] MEDS: HumaLOG 300 UNITS/3 ML VIAL SC PRN (06:30)
[2022-09-06] MEDS: levETIRAcetam 500 MG/5 ML VIAL SLOW IVP SCH ×2 (10:05→22:33)
[2022-09-06] MEDS: Senokot S 8.6-50 MG TAB PO SCH ×2 (10:09→22:48)
[2022-09-06] MEDS: Insulin Glargine 30 UNITS/0.3 ML VIAL SC SCH (10:10)
[2022-09-06] MEDS: Amlodipine 5 MG TAB PO SCH (10:11)
[2022-09-06] MEDS: Carvedilol 25 MG TAB PO SCH ×2 (10:11→17:54)
[2022-09-06] MEDS: Furosemide 40 MG TAB PO SCH (10:11)
[2022-09-06] MEDS: Aspirin 300 MG Suppository PR SCH (10:12)
[2022-09-06] MEDS ORDERED: CEFAZOLIN 2 GM VIAL ONE (11:24)
[2022-09-06] MEDS ORDERED: Sodium Chloride 0.9% 100 ML ONE (11:24)
[2022-09-06] MEDS: Atorvastatin Calcium 40 MG TAB PO SCH (22:31)
[2022-09-06] MEDS: Polyethylene Glycol 3350 17 GM Packet PO SCH (22:32)
[2022-09-06] MEDS: Pantoprazole 40 MG VIAL IVP SCH (22:33)
[2022-09-07] MEDS: D5W-AA 4.25% with LYTES 1,000 ML IV SCH ×2 (00:53→21:19)
[2022-09-07] MEDS: HumaLOG 300 UNITS/3 ML VIAL SC PRN ×2 (06:30→21:56)
[2022-09-07] MEDS: Carvedilol 25 MG TAB PO SCH ×2 (07:53→16:09)
[2022-09-07] MEDS: Amlodipine 5 MG TAB PO SCH (09:58)
[2022-09-07] MEDS: Furosemide 40 MG TAB PO SCH (09:58)
[2022-09-07] MEDS: Aspirin 300 MG Suppository PR SCH (09:58)
[2022-09-07] MEDS: Senokot S 8.6-50 MG TAB PO SCH ×2 (10:00→21:57)
[2022-09-07] MEDS: levETIRAcetam 500 MG/5 ML VIAL SLOW IVP SCH ×2 (10:00→21:56)
[2022-09-07] MEDS: Pantoprazole 40 MG VIAL IVP SCH ×2 (10:00→21:57)
[2022-09-07] MEDS: Insulin Glargine 30 UNITS/0.3 ML VIAL SC SCH (10:00)
[2022-09-07 10:58] LABS: #Eosinphils 0.4 thou/uL (0.0-0.7); #Lymphocytes 1.3 thou/uL (1.20-3.40); #Monocytes 0.9 thou/uL (0.11-0.59); #Neutrophils 6.5 thou/uL (1.40-6.50); %Basophils 0.2 % (0.0-1.0); %Eosinophils 4.2 % (0.0-10.0); %Lymphocytes 14.1 % (21.0-51.0); %Monocytes 10.2 % (0.0-10.0); %Neutrophils 71.4 % (42.0-75.0); Hemoglobin 8.6 g/dL (14.0-18.0); Mean Corpuscular HGB CONC 33.1 g/dL (32.0-36.0); Mean Corpuscular Volume 93.7 fl (78.0-98.0); Mean Platelet Volume 8.7 fL (7.4-10.4); Platelet Count 187 thou/uL (130-400); RBC Distribution Width 13.3 % (11.5-14.5); Red Blood Cell (RBC) Count 2.78 mill/uL (4.70-6.10); White Blood Cell (WBC) Count 9.1 thou/uL (4.8-10.8)
[2022-09-07] MEDS ORDERED: CEFAZOLIN 2 GM in Sodium Chloride 0.9% 100 ML IVPB SCH (11:30)
[2022-09-07 11:51] LABS: Anion Gap 16 mmol/L (10-20); BUN (Urea Nitrogen) 50 mg/dL (8.4-25.7); Calc. Creatinine Clearance 15 mL/min (70-130); Calcium 7.5 mg/dL (7.8-10.44); Carbon Dioxide 23 mmol/L (23-31); Chloride 98 mmol/L (98-107); Estimated GFR 12; Glucose 210 mg/dL (80-115); Potassium 4.6 mmol/L (3.5-5.1); Sodium 132 mmol/L (136-145)
[2022-09-07] MEDS ORDERED: CEFAZOLIN 2 GM VIAL ONE (14:41)
[2022-09-07] MEDS ORDERED: Sodium Chloride 0.9% 100 ML ONE (14:41)
[2022-09-07] MEDS ORDERED: Bupivacaine/Epinephrine 0.25% 30 ML VIAL ONE (14:47)
[2022-09-07] MEDS ORDERED: Heparin 10,000 UNITS/ 10 ML VIAL ONE (14:47)
[2022-09-07] MEDS ORDERED: fentaNYL PF 100 MCG/2 ML SYRINGE ONE (14:59)
[2022-09-07] MEDS ORDERED: Phenylephrine 10 MG/ML VIAL ONE (15:00)
[2022-09-07] MEDS ORDERED: PROPOFOL 200 MG/20 ML VIAL ONE (15:29)
[2022-09-07] MEDS ORDERED: PHENYLEPHRINE-NS 100 MCG/ML 10 ML SYRINGE ONE (15:29)
[2022-09-07] MEDS ORDERED: NEOSTIGMINE 3 MG/3 ML SYR 3 MG/3 ML SYRINGE ONE (15:29)
[2022-09-07] MEDS ORDERED: Rocuronium Bromide 10 MG/ML (10ML VIAL) ONE (15:29)
[2022-09-07] MEDS ORDERED: Ondansetron PF 4 MG/2 ML Vial ONE (15:29)
[2022-09-07] MEDS ORDERED: Glycopyrrolate 0.2 MG/ML 5 ML SYRINGE ONE (15:29)
[2022-09-07] MEDS ORDERED: Iopamidol 0 ML ONE (15:58)
[2022-09-07] MEDS ORDERED: Promethazine HCl 25 MG/ML VIAL IM PRN (16:20)
[2022-09-07] MEDS ORDERED: Promethazine HCl 25 MG/ML VIAL IVPB PRN (16:20)
[2022-09-07 20:06] LABS: Troponin I 0.101 ng/mL (< 0.028)
[2022-09-07] MEDS: Atorvastatin Calcium 40 MG TAB PO SCH (21:57)
[2022-09-07] MEDS: Polyethylene Glycol 3350 17 GM Packet PO SCH (21:57)
[2022-09-08 02:03] LABS: Troponin I 0.109 ng/mL (< 0.028)
[2022-09-08 05:14] LABS: #Eosinphils 0.3 thou/uL (0.0-0.7); #Lymphocytes 1.2 thou/uL (1.20-3.40); #Monocytes 0.7 thou/uL (0.11-0.59); #Neutrophils 6.6 thou/uL (1.40-6.50); %Basophils 0.5 % (0.0-1.0); %Eosinophils 3.4 % (0.0-10.0); %Lymphocytes 13.2 % (21.0-51.0); %Monocytes 8.3 % (0.0-10.0); %Neutrophils 74.6 % (42.0-75.0); Hemoglobin 9.1 g/dL (14.0-18.0); Mean Corpuscular HGB CONC 32.3 g/dL (32.0-36.0); Mean Corpuscular Hemoglobin 30.4 pg (27.0-31.0); Mean Corpuscular Volume 94.3 fl (78.0-98.0); Mean Platelet Volume 8.8 fL (7.4-10.4); Platelet Count 207 thou/uL (130-400); White Blood Cell (WBC) Count 8.8 thou/uL (4.8-10.8)
[2022-09-08 05:29] LABS: Anion Gap 18 mmol/L (10-20); BUN (Urea Nitrogen) 59 mg/dL (8.4-25.7); Calc. Creatinine Clearance 13 mL/min (70-130); Calcium 7.7 mg/dL (7.8-10.44); Carbon Dioxide 23 mmol/L (23-31); Chloride 98 mmol/L (98-107); Estimated GFR 10; Glucose 206 mg/dL (80-115); Potassium 4.8 mmol/L (3.5-5.1); Sodium 134 mmol/L (136-145)
[2022-09-08] MEDS: HumaLOG 300 UNITS/3 ML VIAL SC PRN (06:32)
[2022-09-08] MEDS ORDERED: Heparin 10,000 UNITS/ 10 ML VIAL ONE (09:04)
[2022-09-08] MEDS: levETIRAcetam 500 MG/5 ML VIAL SLOW IVP SCH ×2 (09:42→20:49)
[2022-09-08] MEDS: Pantoprazole 40 MG VIAL IVP SCH ×2 (09:42→20:49)
[2022-09-08] MEDS: Senokot S 8.6-50 MG TAB PO SCH ×2 (09:43→20:49)
[2022-09-08] MEDS: Insulin Glargine 30 UNITS/0.3 ML VIAL SC SCH (09:43)
[2022-09-08] MEDS: Furosemide 40 MG TAB PO SCH (09:43)
[2022-09-08] MEDS: Amlodipine 5 MG TAB PO SCH (09:44)
[2022-09-08] MEDS: Aspirin 300 MG Suppository PR SCH (09:44)
[2022-09-08] MEDS: Carvedilol 25 MG TAB PO SCH ×2 (09:44→18:26)
[2022-09-08] MEDS: Atorvastatin Calcium 40 MG TAB PO SCH (20:49)
[2022-09-08] MEDS: Polyethylene Glycol 3350 17 GM Packet PO SCH (20:49)
[2022-09-09 05:41] LABS: #Eosinphils 0.3 thou/uL (0.0-0.7); #Lymphocytes 1.6 thou/uL (1.20-3.40); #Monocytes 1.2 thou/uL (0.11-0.59); #Neutrophils 7.7 thou/uL (1.40-6.50); %Basophils 0.1 % (0.0-1.0); %Eosinophils 3.2 % (0.0-10.0); %Lymphocytes 14.8 % (21.0-51.0); %Monocytes 10.8 % (0.0-10.0); %Neutrophils 71.1 % (42.0-75.0); Hemoglobin 8.7 g/dL (14.0-18.0); Mean Corpuscular Hemoglobin 29.6 pg (27.0-31.0); Mean Corpuscular Volume 92.6 fl (78.0-98.0); Mean Platelet Volume 9.2 fL (7.4-10.4); Platelet Count 237 thou/uL (130-400); RBC Distribution Width 13.4 % (11.5-14.5); Red Blood Cell (RBC) Count 2.94 mill/uL (4.70-6.10); White Blood Cell (WBC) Count 10.8 thou/uL (4.8-10.8)
[2022-09-09 06:03] LABS: Anion Gap 15 mmol/L (10-20); BUN (Urea Nitrogen) 32 mg/dL (8.4-25.7); Calc. Creatinine Clearance 20 mL/min (70-130); Carbon Dioxide 24 mmol/L (23-31); Chloride 98 mmol/L (98-107); Estimated GFR 16; Glucose 80 mg/dL (80-115); Potassium 4.1 mmol/L (3.5-5.1); Sodium 133 mmol/L (136-145)
[2022-09-09] MEDS: levETIRAcetam 500 MG/5 ML VIAL SLOW IVP SCH ×2 (09:02→21:06)
[2022-09-09] MEDS: Pantoprazole 40 MG VIAL IVP SCH ×2 (09:03→21:06)
[2022-09-09] MEDS: Insulin Glargine 30 UNITS/0.3 ML VIAL SC SCH (09:03)
[2022-09-09] MEDS: Amlodipine 5 MG TAB PO SCH (09:04)
[2022-09-09] MEDS: Carvedilol 25 MG TAB PO SCH ×2 (09:04→17:21)
[2022-09-09] MEDS: Furosemide 40 MG TAB PO SCH (09:04)
[2022-09-09] MEDS: Senokot S 8.6-50 MG TAB PO SCH ×2 (09:04→21:06)
[2022-09-09] MEDS: Aspirin 300 MG Suppository PR SCH (09:05)
[2022-09-09 19:03] LABS: Actual Bicarbonate (HCO3a) 24.8 mEq/L (22-28); Base Excess (BEa) 1.5 mEq/L (-2.0 to +3.0); CO2 Tension 33.9 mmHg (35.0-45.0); Calcium, Ionized (arterial) 0.98 mmol/L (1.12-1.30); Carboxyhemoglobin (COHb) 0.3 gm% (0.0-3.0); Hemoglobin (Hb) 9.7 g/dL (14.0-18.0); O2 Tension (PaO2), arterial 64.1 mmHg (> 80.0); Potassium - ABG Lab 4.33 mmol/L (3.70-5.30); pH, Arterial 7.48 (7.35-7.45)
[2022-09-09 19:07] LABS: ALV-art Gradient 43.255 mmHg (0-20); Puncture Site RBA
[2022-09-09] MEDS: Atorvastatin Calcium 40 MG TAB PO SCH (21:06)
[2022-09-09] MEDS: Polyethylene Glycol 3350 17 GM Packet PO SCH (21:06)
[2022-09-10] MEDS: Acetaminophen 325 MG TAB PER TUBE PRN (00:34)
[2022-09-10 05:34] LABS: #Eosinphils 0.2 thou/uL (0.0-0.7); #Lymphocytes 1.4 thou/uL (1.20-3.40); #Monocytes 0.9 thou/uL (0.11-0.59); #Neutrophils 6.9 thou/uL (1.40-6.50); %Basophils 0.4 % (0.0-1.0); %Eosinophils 2.5 % (0.0-10.0); %Lymphocytes 14.4 % (21.0-51.0); %Monocytes 9.7 % (0.0-10.0); Hemoglobin 8.5 g/dL (14.0-18.0); Mean Corpuscular HGB CONC 32.6 g/dL (32.0-36.0); Mean Corpuscular Hemoglobin 30.3 pg (27.0-31.0); Mean Corpuscular Volume 93.1 fl (78.0-98.0); Mean Platelet Volume 8.8 fL (7.4-10.4); Platelet Count 204 thou/uL (130-400); Red Blood Cell (RBC) Count 2.78 mill/uL (4.70-6.10); White Blood Cell (WBC) Count 9.5 thou/uL (4.8-10.8)
[2022-09-10] MEDS: HumaLOG 300 UNITS/3 ML VIAL SC PRN ×2 (06:13→17:06)
[2022-09-10 06:23] LABS: Anion Gap 16 mmol/L (10-20); BUN (Urea Nitrogen) 48 mg/dL (8.4-25.7); Calc. Creatinine Clearance 15 mL/min (70-130); Calcium 7.8 mg/dL (7.8-10.44); Carbon Dioxide 23 mmol/L (23-31); Chloride 95 mmol/L (98-107); Estimated GFR 11; Glucose 335 mg/dL (80-115); Sodium 130 mmol/L (136-145)
[2022-09-10] MEDS ORDERED: Heparin 10,000 UNITS/ 10 ML VIAL ONE (09:18)
[2022-09-10] MEDS: Amlodipine 5 MG TAB PO SCH (12:33)
[2022-09-10] MEDS: Aspirin 300 MG Suppository PR SCH (12:33)
[2022-09-10] MEDS: Furosemide 40 MG TAB PO SCH (12:33)
[2022-09-10] MEDS: Carvedilol 25 MG TAB PO SCH ×2 (12:33→17:04)
[2022-09-10] MEDS: Senokot S 8.6-50 MG TAB PO SCH ×2 (12:34→21:55)
[2022-09-10] MEDS: Insulin Glargine 30 UNITS/0.3 ML VIAL SC SCH (14:23)
[2022-09-10] MEDS: levETIRAcetam 500 MG/5 ML VIAL SLOW IVP SCH ×2 (14:23→21:54)
[2022-09-10] MEDS: Pantoprazole 40 MG VIAL IVP SCH ×2 (14:24→21:55)
[2022-09-10] MEDS: Scopolamine 1.5 mg/72 hour Patch TD SCH (17:01)
[2022-09-10 21:53] LABS: Magnesium 1.9 mg/dL (1.6-2.6)
[2022-09-10] MEDS: Polyethylene Glycol 3350 17 GM Packet PO SCH (21:55)
[2022-09-10] MEDS: Atorvastatin Calcium 40 MG TAB PO SCH (21:55)
[2022-09-11] MEDS: HumaLOG 300 UNITS/3 ML VIAL SC PRN ×4 (05:49→22:07)
[2022-09-11 06:54] LABS: #Eosinphils 0.3 thou/uL (0.0-0.7); #Lymphocytes 1.7 thou/uL (1.20-3.40); #Monocytes 1.2 thou/uL (0.11-0.59); #Neutrophils 8.5 thou/uL (1.40-6.50); %Basophils 0.3 % (0.0-1.0); %Eosinophils 2.3 % (0.0-10.0); %Lymphocytes 14.3 % (21.0-51.0); %Monocytes 10.2 % (0.0-10.0); %Neutrophils 72.9 % (42.0-75.0); Hemoglobin 8.3 g/dL (14.0-18.0); Mean Corpuscular HGB CONC 33.4 g/dL (32.0-36.0); Mean Corpuscular Hemoglobin 31.5 pg (27.0-31.0); Mean Corpuscular Volume 94.3 fl (78.0-98.0); Mean Platelet Volume 9.1 fL (7.4-10.4); Platelet Count 211 thou/uL (130-400); RBC Distribution Width 13.3 % (11.5-14.5); Red Blood Cell (RBC) Count 2.62 mill/uL (4.70-6.10); White Blood Cell (WBC) Count 11.7 thou/uL (4.8-10.8)
[2022-09-11 07:16] LABS: Anion Gap 13 mmol/L (10-20); BUN (Urea Nitrogen) 27 mg/dL (8.4-25.7); Calc. Creatinine Clearance 20 mL/min (70-130); Calcium 7.7 mg/dL (7.8-10.44); Carbon Dioxide 28 mmol/L (23-31); Chloride 97 mmol/L (98-107); Estimated GFR 16; Glucose 367 mg/dL (80-115); Potassium 3.9 mmol/L (3.5-5.1); Sodium 134 mmol/L (136-145)
[2022-09-11] MEDS: Insulin Glargine 30 UNITS/0.3 ML VIAL SC SCH (08:55)
[2022-09-11] MEDS: levETIRAcetam 500 MG/5 ML VIAL SLOW IVP SCH ×2 (08:55→20:34)
[2022-09-11] MEDS: Aspirin 300 MG Suppository PR SCH (08:56)
[2022-09-11] MEDS: Pantoprazole 40 MG VIAL IVP SCH ×2 (08:56→20:36)
[2022-09-11] MEDS: Furosemide 40 MG TAB PO SCH (08:56)
[2022-09-11] MEDS: Carvedilol 25 MG TAB PO SCH ×2 (08:57→18:03)
[2022-09-11] MEDS: Amlodipine 5 MG TAB PO SCH (08:57)
[2022-09-11] MEDS: Senokot S 8.6-50 MG TAB PO SCH ×2 (12:08→20:35)
[2022-09-11] MEDS ORDERED: Lactated Ringer's 500 ML IV SCH (12:15)
[2022-09-11] MEDS ORDERED: Piperacillin/Tazobactam 4.5 GM in Sodium Chloride 0.9% 100 ML IVPB SCH (12:20)
[2022-09-11] MEDS ORDERED: Piperacillin/Tazobactam 3.375 GM in Sodium Chloride 0.9% 100 ML IVPB SCH (13:00)
[2022-09-11 13:19] LABS: Lactic Acid 1.3 mmol/L (0.5-2.2)
[2022-09-11] MEDS: Piperacillin/Tazobactam 3.375 GM in Sodium Chloride 0.9% 100 ML IVPB SCH (16:54)
[2022-09-11] MEDS: Atorvastatin Calcium 40 MG TAB PO SCH (20:34)
[2022-09-11] MEDS: Polyethylene Glycol 3350 17 GM Packet PO SCH (20:35)
[2022-09-12] MEDS: Piperacillin/Tazobactam 3.375 GM in Sodium Chloride 0.9% 100 ML IVPB SCH ×3 (05:25→21:08)
[2022-09-12 05:41] LABS: #Basophils 0.1 thou/uL (0.0-0.2); #Eosinphils 0.3 thou/uL (0.0-0.7); #Lymphocytes 1.8 thou/uL (1.20-3.40); #Monocytes 1.1 thou/uL (0.11-0.59); #Neutrophils 8.6 thou/uL (1.40-6.50); %Basophils 0.5 % (0.0-1.0); %Eosinophils 2.7 % (0.0-10.0); %Neutrophils 72.9 % (42.0-75.0); Hemoglobin 7.2 g/dL (14.0-18.0); Mean Corpuscular HGB CONC 32.6 g/dL (32.0-36.0); Mean Corpuscular Hemoglobin 30.8 pg (27.0-31.0); Mean Corpuscular Volume 94.5 fl (78.0-98.0); Mean Platelet Volume 8.7 fL (7.4-10.4); Platelet Count 183 thou/uL (130-400); RBC Distribution Width 13.2 % (11.5-14.5); Red Blood Cell (RBC) Count 2.34 mill/uL (4.70-6.10); White Blood Cell (WBC) Count 11.8 thou/uL (4.8-10.8)
[2022-09-12 05:55] LABS: Anion Gap 14 mmol/L (10-20); BUN (Urea Nitrogen) 40 mg/dL (8.4-25.7); Calc. Creatinine Clearance 15 mL/min (70-130); Carbon Dioxide 26 mmol/L (23-31); Chloride 93 mmol/L (98-107); Potassium 3.6 mmol/L (3.5-5.1); Sodium 129 mmol/L (136-145)
[2022-09-12 05:56] LABS: Calcium 7.4 mg/dL (7.8-10.44); Estimated GFR 12; Glucose 343 mg/dL (80-115)
[2022-09-12] MEDS: HumaLOG 300 UNITS/3 ML VIAL SC PRN ×2 (06:05→12:33)
[2022-09-12] MEDS: Pantoprazole 40 MG VIAL IVP SCH ×2 (09:27→21:08)
[2022-09-12] MEDS: Insulin Glargine 30 UNITS/0.3 ML VIAL SC SCH (09:28)
[2022-09-12] MEDS: levETIRAcetam 500 MG/5 ML VIAL SLOW IVP SCH ×2 (09:29→21:07)
[2022-09-12] MEDS: Carvedilol 25 MG TAB PO SCH (09:30)
[2022-09-12] MEDS: Amlodipine 5 MG TAB PO SCH (09:30)
[2022-09-12] MEDS: Furosemide 40 MG TAB PO SCH (09:31)
[2022-09-12] MEDS: Senokot S 8.6-50 MG TAB PO SCH ×2 (09:31→21:07)
[2022-09-12] MEDS ORDERED: Heparin 10,000 UNITS/ 10 ML VIAL ONE (10:32)
[2022-09-12] MEDS ORDERED: traMADol HCl 50 MG TAB PER TUBE PRN (11:15)
[2022-09-12] MEDS ORDERED: Aspirin Chewable 81 MG TAB PER TUBE SCH (11:30)
[2022-09-12] MEDS: Aspirin 300 MG Suppository PR SCH (11:38)
[2022-09-12] MEDS ORDERED: Carvedilol 25 MG TAB PER TUBE SCH ×2 (17:00→19:15)
[2022-09-12] MEDS: Atorvastatin Calcium 40 MG TAB PER TUBE SCH (21:07)
[2022-09-12] MEDS: Polyethylene Glycol 3350 17 GM Packet PER TUBE SCH (21:09)
[2022-09-12] MEDS: Isosorbide Dinitrate 5 MG TAB PER TUBE SCH (21:12)
[2022-09-12] MEDS: Carvedilol 25 MG TAB PER TUBE SCH (21:12)
[2022-09-13] MEDS: HumaLOG 300 UNITS/3 ML VIAL SC PRN ×3 (06:35→16:47)
[2022-09-13 07:05] LABS: #Basophils 0.1 thou/uL (0.0-0.2); #Eosinphils 0.4 thou/uL (0.0-0.7); #Lymphocytes 1.4 thou/uL (1.20-3.40); #Monocytes 0.8 thou/uL (0.11-0.59); #Neutrophils 8.8 thou/uL (1.40-6.50); %Basophils 0.7 % (0.0-1.0); %Eosinophils 3.2 % (0.0-10.0); %Lymphocytes 12.1 % (21.0-51.0); %Monocytes 6.9 % (0.0-10.0); %Neutrophils 77.2 % (42.0-75.0); Mean Corpuscular HGB CONC 33.7 g/dL (32.0-36.0); Mean Corpuscular Hemoglobin 31.5 pg (27.0-31.0); Mean Corpuscular Volume 93.5 fl (78.0-98.0); Mean Platelet Volume 9.2 fL (7.4-10.4); Platelet Count 184 thou/uL (130-400); RBC Distribution Width 12.8 % (11.5-14.5); Red Blood Cell (RBC) Count 2.84 mill/uL (4.70-6.10); White Blood Cell (WBC) Count 11.3 thou/uL (4.8-10.8)
[2022-09-13 07:21] LABS: Anion Gap 11 mmol/L (10-20); BUN (Urea Nitrogen) 25 mg/dL (8.4-25.7); Calc. Creatinine Clearance 23 mL/min (70-130); Calcium 7.4 mg/dL (7.8-10.44); Carbon Dioxide 29 mmol/L (23-31); Chloride 97 mmol/L (98-107); Estimated GFR 19; Glucose 362 mg/dL (80-115); Potassium 3.7 mmol/L (3.5-5.1); Sodium 133 mmol/L (136-145)
[2022-09-13] MEDS: Furosemide 40 MG TAB PER TUBE SCH (10:00)
[2022-09-13] MEDS: Pantoprazole 40 MG VIAL IVP SCH ×2 (10:00→20:52)
[2022-09-13] MEDS: Aspirin Chewable 81 MG TAB PER TUBE SCH (10:00)
[2022-09-13] MEDS: levETIRAcetam 500 MG/5 ML VIAL SLOW IVP SCH ×2 (10:00→20:50)
[2022-09-13] MEDS: Piperacillin/Tazobactam 3.375 GM in Sodium Chloride 0.9% 100 ML IVPB SCH ×2 (10:03→20:52)
[2022-09-13] MEDS: Amlodipine 5 MG TAB PER TUBE SCH (10:05)
[2022-09-13] MEDS: Insulin Glargine 30 UNITS/0.3 ML VIAL SC SCH (10:05)
[2022-09-13] MEDS: Isosorbide Dinitrate 5 MG TAB PER TUBE SCH ×2 (10:08→20:51)
[2022-09-13] MEDS: Senokot S 8.6-50 MG TAB PO SCH ×2 (10:09→20:54)
[2022-09-13] MEDS: Scopolamine 1.5 mg/72 hour Patch TD SCH (15:16)
[2022-09-13] MEDS: Carvedilol 25 MG TAB PER TUBE SCH (18:11)
[2022-09-13] MEDS: Atorvastatin Calcium 40 MG TAB PER TUBE SCH (20:51)
[2022-09-13] MEDS: Polyethylene Glycol 3350 17 GM Packet PER TUBE SCH (20:53)
[2022-09-14] MEDS: HumaLOG 300 UNITS/3 ML VIAL SC PRN ×2 (05:38→13:00)
[2022-09-14 07:57] LABS: #Basophils 0.1 thou/uL (0.0-0.2); #Eosinphils 0.4 thou/uL (0.0-0.7); #Lymphocytes 1.6 thou/uL (1.20-3.40); #Monocytes 0.9 thou/uL (0.11-0.59); #Neutrophils 10.9 thou/uL (1.40-6.50); %Basophils 0.6 % (0.0-1.0); %Lymphocytes 11.2 % (21.0-51.0); %Monocytes 6.7 % (0.0-10.0); %Neutrophils 78.4 % (42.0-75.0); Hemoglobin 8.1 g/dL (14.0-18.0); Mean Corpuscular HGB CONC 32.3 g/dL (32.0-36.0); Mean Corpuscular Hemoglobin 29.9 pg (27.0-31.0); Mean Corpuscular Volume 92.7 fl (78.0-98.0); Mean Platelet Volume 9.2 fL (7.4-10.4); Platelet Count 200 thou/uL (130-400); RBC Distribution Width 13.2 % (11.5-14.5); Red Blood Cell (RBC) Count 2.72 mill/uL (4.70-6.10); White Blood Cell (WBC) Count 13.9 thou/uL (4.8-10.8)
[2022-09-14 08:03] LABS: Anion Gap 11 mmol/L (10-20); BUN (Urea Nitrogen) 41 mg/dL (8.4-25.7); Calc. Creatinine Clearance 17 mL/min (70-130); Calcium 7.4 mg/dL (7.8-10.44); Carbon Dioxide 28 mmol/L (23-31); Chloride 96 mmol/L (98-107); Estimated GFR 13; Glucose 308 mg/dL (80-115); Potassium 3.4 mmol/L (3.5-5.1); Sodium 132 mmol/L (136-145)
[2022-09-14] MEDS: Insulin Glargine 30 UNITS/0.3 ML VIAL SC SCH (09:52)
[2022-09-14] MEDS: Furosemide 40 MG TAB PER TUBE SCH (09:52)
[2022-09-14] MEDS: Aspirin Chewable 81 MG TAB PER TUBE SCH (09:52)
[2022-09-14] MEDS: Pantoprazole 40 MG VIAL IVP SCH ×2 (09:53→22:15)
[2022-09-14] MEDS: levETIRAcetam 500 MG/5 ML VIAL SLOW IVP SCH ×2 (09:53→22:15)
[2022-09-14] MEDS: Carvedilol 25 MG TAB PER TUBE SCH ×2 (11:54→17:06)
[2022-09-14] MEDS: Amlodipine 5 MG TAB PER TUBE SCH (11:54)
[2022-09-14] MEDS: Senokot S 8.6-50 MG TAB PO SCH ×2 (11:55→22:17)
[2022-09-14] MEDS: Isosorbide Dinitrate 5 MG TAB PER TUBE SCH ×2 (11:55→22:16)
[2022-09-14 12:16] LABS: Hemoglobin A1c 6.8 % (4.0-6.0)
[2022-09-14] MEDS: Epoetin (ESRD) 20,000 UNITS/ML SC SCH (13:01)
[2022-09-14 21:03] LABS: Campy jejuni + coli by PCR Negative (Negative); STEC Shiga Toxin 1+2 Negative (Negative); Salmonella spp. by PCR Negative (Negative); Shigella spp + EIEC by PCR Negative (Negative)
[2022-09-14] MEDS: Acetaminophen 325 MG TAB PER TUBE PRN (22:14)
[2022-09-14] MEDS: Atorvastatin Calcium 40 MG TAB PER TUBE SCH (22:15)
[2022-09-14] MEDS: Polyethylene Glycol 3350 17 GM Packet PER TUBE SCH (22:17)
[2022-09-15 04:51] LABS: #Basophils 0.1 thou/uL (0.0-0.2); #Eosinphils 0.4 thou/uL (0.0-0.7); #Lymphocytes 1.9 thou/uL (1.20-3.40); #Monocytes 1.1 thou/uL (0.11-0.59); #Neutrophils 9.3 thou/uL (1.40-6.50); %Basophils 0.6 % (0.0-1.0); %Eosinophils 2.9 % (0.0-10.0); %Lymphocytes 14.8 % (21.0-51.0); %Monocytes 8.3 % (0.0-10.0); %Neutrophils 73.5 % (42.0-75.0); Hemoglobin 8.8 g/dL (14.0-18.0); Mean Corpuscular Hemoglobin 31.1 pg (27.0-31.0); Mean Corpuscular Volume 94.2 fl (78.0-98.0); Mean Platelet Volume 9.3 fL (7.4-10.4); Platelet Count 210 thou/uL (130-400); Red Blood Cell (RBC) Count 2.83 mill/uL (4.70-6.10); White Blood Cell (WBC) Count 12.6 thou/uL (4.8-10.8)
[2022-09-15 05:15] LABS: Anion Gap 10 mmol/L (10-20); BUN (Urea Nitrogen) 26 mg/dL (8.4-25.7); Calc. Creatinine Clearance 24 mL/min (70-130); Calcium 8.2 mg/dL (7.8-10.44); Carbon Dioxide 29 mmol/L (23-31); Chloride 98 mmol/L (98-107); Estimated GFR 20; Glucose 323 mg/dL (80-115); Potassium 3.9 mmol/L (3.5-5.1); Sodium 133 mmol/L (136-145)
[2022-09-15] MEDS: HumaLOG 300 UNITS/3 ML VIAL SC PRN ×4 (05:53→21:33)
[2022-09-15] MEDS: levETIRAcetam 500 MG/5 ML VIAL SLOW IVP SCH ×2 (09:01→21:34)
[2022-09-15] MEDS: Furosemide 40 MG TAB PER TUBE SCH (09:01)
[2022-09-15] MEDS: Aspirin Chewable 81 MG TAB PER TUBE SCH (09:01)
[2022-09-15] MEDS: Pantoprazole 40 MG VIAL IVP SCH ×2 (09:01→21:34)
[2022-09-15] MEDS: Insulin Glargine 30 UNITS/0.3 ML VIAL SC SCH (09:01)
[2022-09-15] MEDS: Carvedilol 25 MG TAB PER TUBE SCH ×2 (09:29→16:57)
[2022-09-15] MEDS: Amlodipine 5 MG TAB PER TUBE SCH (09:30)
[2022-09-15] MEDS: Isosorbide Dinitrate 5 MG TAB PER TUBE SCH ×2 (09:30→21:30)
[2022-09-15] MEDS: Senokot S 8.6-50 MG TAB PO SCH ×2 (09:30→21:34)
[2022-09-15] MEDS: Atorvastatin Calcium 40 MG TAB PER TUBE SCH (21:32)
[2022-09-15] MEDS: Acetaminophen 325 MG TAB PER TUBE PRN (21:32)
[2022-09-15] MEDS: Polyethylene Glycol 3350 17 GM Packet PER TUBE SCH (21:34)
[2022-09-16 04:45] LABS: #Basophils 0.1 thou/uL (0.0-0.2); #Eosinphils 0.5 thou/uL (0.0-0.7); #Lymphocytes 1.9 thou/uL (1.20-3.40); #Neutrophils 8.3 thou/uL (1.40-6.50); %Basophils 0.9 % (0.0-1.0); %Eosinophils 4.4 % (0.0-10.0); %Lymphocytes 16.2 % (21.0-51.0); %Monocytes 8.3 % (0.0-10.0); %Neutrophils 70.2 % (42.0-75.0); Hemoglobin 8.8 g/dL (14.0-18.0); Mean Corpuscular HGB CONC 33.3 g/dL (32.0-36.0); Mean Corpuscular Hemoglobin 31.4 pg (27.0-31.0); Mean Corpuscular Volume 94.2 fl (78.0-98.0); Mean Platelet Volume 9.1 fL (7.4-10.4); Platelet Count 226 thou/uL (130-400); RBC Distribution Width 12.9 % (11.5-14.5); White Blood Cell (WBC) Count 11.8 thou/uL (4.8-10.8)
[2022-09-16 05:06] LABS: Anion Gap 12 mmol/L (10-20); BUN (Urea Nitrogen) 45 mg/dL (8.4-25.7); Calc. Creatinine Clearance 16 mL/min (70-130); Calcium 8.2 mg/dL (7.8-10.44); Carbon Dioxide 28 mmol/L (23-31); Chloride 95 mmol/L (98-107); Estimated GFR 13; Glucose 328 mg/dL (80-115); Potassium 3.8 mmol/L (3.5-5.1); Sodium 131 mmol/L (136-145)
[2022-09-16] MEDS: HumaLOG 300 UNITS/3 ML VIAL SC PRN ×2 (06:12→22:25)
[2022-09-16] MEDS: Senokot S 8.6-50 MG TAB PO SCH ×2 (08:56→22:23)
[2022-09-16] MEDS: Aspirin Chewable 81 MG TAB PER TUBE SCH (08:56)
[2022-09-16] MEDS: Furosemide 40 MG TAB PER TUBE SCH (08:56)
[2022-09-16] MEDS: Pantoprazole 40 MG VIAL IVP SCH ×2 (08:57→22:24)
[2022-09-16] MEDS: Amlodipine 5 MG TAB PER TUBE SCH (08:57)
[2022-09-16] MEDS: Insulin Glargine 30 UNITS/0.3 ML VIAL SC SCH (08:57)
[2022-09-16] MEDS: Carvedilol 25 MG TAB PER TUBE SCH ×2 (08:57→17:00)
[2022-09-16] MEDS: Isosorbide Dinitrate 5 MG TAB PER TUBE SCH ×2 (08:57→22:24)
[2022-09-16] MEDS: levETIRAcetam 500 MG/5 ML VIAL SLOW IVP SCH ×2 (09:07→22:24)
[2022-09-16] MEDS: Scopolamine 1.5 mg/72 hour Patch TD SCH (16:59)
[2022-09-16] MEDS: Polyethylene Glycol 3350 17 GM Packet PER TUBE SCH (22:23)
[2022-09-16] MEDS: Acetaminophen 325 MG TAB PER TUBE PRN (22:23)
[2022-09-16] MEDS: Atorvastatin Calcium 40 MG TAB PER TUBE SCH (22:24)
[2022-09-17] MEDS: HumaLOG 300 UNITS/3 ML VIAL SC PRN ×4 (05:44→22:56)
[2022-09-17 06:36] LABS: Anion Gap 11 mmol/L (10-20); BUN (Urea Nitrogen) 29 mg/dL (8.4-25.7); Calc. Creatinine Clearance 23 mL/min (70-130); Calcium 8.1 mg/dL (7.8-10.44); Carbon Dioxide 32 mmol/L (23-31); Chloride 96 mmol/L (98-107); Estimated GFR 20; Glucose 307 mg/dL (80-115); Potassium 3.7 mmol/L (3.5-5.1); Sodium 135 mmol/L (136-145)
[2022-09-17 07:31] LABS: #Basophils 0.1 thou/uL (0.0-0.2); #Eosinphils 0.4 thou/uL (0.0-0.7); #Lymphocytes 1.7 thou/uL (1.20-3.40); #Monocytes 0.7 thou/uL (0.11-0.59); %Basophils 1.2 % (0.0-1.0); %Eosinophils 3.7 % (0.0-10.0); %Lymphocytes 16.8 % (21.0-51.0); %Monocytes 7.4 % (0.0-10.0); %Neutrophils 70.8 % (42.0-75.0); Hemoglobin 9.7 g/dL (14.0-18.0); Hypochromia SLIGHT = 6-15 cells (100X) (0-5/hpf); MDiff Complete? YES; Mean Corpuscular Hemoglobin 27.4 pg (27.0-31.0); Mean Corpuscular Volume 94.4 fl (78.0-98.0); Mean Platelet Volume 9.2 fL (7.4-10.4); Platelet Count 221 thou/uL (130-400); Platelet Morphology Comment Appears Adequate; Polychromasia SLIGHT = 2-3 cells (100X) (0-2/hpf); RBC Distribution Width 13.3 % (11.5-14.5); Red Blood Cell (RBC) Count 3.55 mill/uL (4.70-6.10); Schistocytes SLIGHT = 2-5 cells (100X) (0-1/hpf); Tear Drops SLIGHT = 2-5 cells (100X) (0-1/hpf); White Blood Cell (WBC) Count 9.8 thou/uL (4.8-10.8)
[2022-09-17] MEDS: Isosorbide Dinitrate 5 MG TAB PER TUBE SCH ×2 (08:16→22:56)
[2022-09-17] MEDS: Furosemide 40 MG TAB PER TUBE SCH (08:17)
[2022-09-17] MEDS: Amlodipine 5 MG TAB PER TUBE SCH (08:17)
[2022-09-17] MEDS: Carvedilol 25 MG TAB PER TUBE SCH ×2 (08:17→16:21)
[2022-09-17] MEDS: Aspirin Chewable 81 MG TAB PER TUBE SCH (08:17)
[2022-09-17] MEDS: Pantoprazole 40 MG VIAL IVP SCH ×2 (08:18→22:57)
[2022-09-17] MEDS: Insulin Glargine 30 UNITS/0.3 ML VIAL SC SCH (08:18)
[2022-09-17] MEDS: Senokot S 8.6-50 MG TAB PO SCH ×2 (08:18→22:56)
[2022-09-17] MEDS: levETIRAcetam 500 MG/5 ML VIAL SLOW IVP SCH ×2 (08:18→22:57)
[2022-09-17] MEDS: Atorvastatin Calcium 40 MG TAB PER TUBE SCH (22:55)
[2022-09-17] MEDS: Acetaminophen 325 MG TAB PER TUBE PRN (22:56)
[2022-09-17] MEDS: Polyethylene Glycol 3350 17 GM Packet PER TUBE SCH (22:57)
[2022-09-18] MEDS: HumaLOG 300 UNITS/3 ML VIAL SC PRN ×4 (05:41→21:22)
[2022-09-18 06:11] LABS: #Basophils 0.1 thou/uL (0.0-0.2); #Eosinphils 0.4 thou/uL (0.0-0.7); #Monocytes 0.9 thou/uL (0.11-0.59); #Neutrophils 6.8 thou/uL (1.40-6.50); %Basophils 0.8 % (0.0-1.0); %Eosinophils 3.8 % (0.0-10.0); %Lymphocytes 19.4 % (21.0-51.0); %Monocytes 8.8 % (0.0-10.0); %Neutrophils 67.2 % (42.0-75.0); Hemoglobin 8.3 g/dL (14.0-18.0); Mean Corpuscular HGB CONC 32.6 g/dL (32.0-36.0); Mean Corpuscular Hemoglobin 30.4 pg (27.0-31.0); Mean Corpuscular Volume 93.3 fl (78.0-98.0); Mean Platelet Volume 8.7 fL (7.4-10.4); Platelet Count 268 thou/uL (130-400); RBC Distribution Width 13.3 % (11.5-14.5); Red Blood Cell (RBC) Count 2.72 mill/uL (4.70-6.10); White Blood Cell (WBC) Count 10.2 thou/uL (4.8-10.8)
[2022-09-18 06:30] LABS: Anion Gap 13 mmol/L (10-20); BUN (Urea Nitrogen) 47 mg/dL (8.4-25.7); Calc. Creatinine Clearance 17 mL/min (70-130); Calcium 8.2 mg/dL (7.8-10.44); Carbon Dioxide 30 mmol/L (23-31); Chloride 92 mmol/L (98-107); Estimated GFR 13; Glucose 365 mg/dL (80-115); Potassium 3.8 mmol/L (3.5-5.1); Sodium 131 mmol/L (136-145)
[2022-09-18] MEDS: Carvedilol 25 MG TAB PER TUBE SCH ×2 (07:56→16:35)
[2022-09-18] MEDS: Insulin Glargine 30 UNITS/0.3 ML VIAL SC SCH (08:00)
[2022-09-18] MEDS: Pantoprazole 40 MG VIAL IVP SCH ×2 (08:00→21:29)
[2022-09-18] MEDS: Senokot S 8.6-50 MG TAB PO SCH ×2 (08:01→21:21)
[2022-09-18] MEDS: Amlodipine 5 MG TAB PER TUBE SCH (08:01)
[2022-09-18] MEDS: Furosemide 40 MG TAB PER TUBE SCH (08:01)
[2022-09-18] MEDS: Isosorbide Dinitrate 5 MG TAB PER TUBE SCH ×2 (08:02→21:29)
[2022-09-18] MEDS: Aspirin Chewable 81 MG TAB PER TUBE SCH (08:02)
[2022-09-18] MEDS: levETIRAcetam 500 MG/5 ML VIAL SLOW IVP SCH ×2 (08:03→21:22)
[2022-09-18] MEDS ORDERED: Insulin Glargine 30 UNITS/0.3 ML VIAL SC SCH (14:15)
[2022-09-18] MEDS: Glycopyrrolate 1 MG TAB PER TUBE SCH ×2 (15:24→21:22)
[2022-09-18] MEDS: Heparin 5,000 UNITS/ML VIAL SC SCH ×2 (15:24→21:22)
[2022-09-18] MEDS: Atorvastatin Calcium 40 MG TAB PER TUBE SCH (21:19)
[2022-09-18] MEDS: Polyethylene Glycol 3350 17 GM Packet PER TUBE SCH (21:29)
[2022-09-19 05:38] LABS: #Basophils 0.1 thou/uL (0.0-0.2); #Eosinphils 0.4 thou/uL (0.0-0.7); #Lymphocytes 2.3 thou/uL (1.20-3.40); #Monocytes 1.1 thou/uL (0.11-0.59); #Neutrophils 6.9 thou/uL (1.40-6.50); %Basophils 0.8 % (0.0-1.0); %Eosinophils 4.1 % (0.0-10.0); %Lymphocytes 21.4 % (21.0-51.0); %Monocytes 9.9 % (0.0-10.0); %Neutrophils 63.9 % (42.0-75.0); Hemoglobin 7.9 g/dL (14.0-18.0); Mean Corpuscular HGB CONC 32.8 g/dL (32.0-36.0); Mean Corpuscular Hemoglobin 30.4 pg (27.0-31.0); Mean Corpuscular Volume 92.7 fl (78.0-98.0); Mean Platelet Volume 8.7 fL (7.4-10.4); Platelet Count 272 thou/uL (130-400); RBC Distribution Width 13.4 % (11.5-14.5); Red Blood Cell (RBC) Count 2.61 mill/uL (4.70-6.10); White Blood Cell (WBC) Count 10.8 thou/uL (4.8-10.8)
[2022-09-19 06:08] LABS: Anion Gap 14 mmol/L (10-20); BUN (Urea Nitrogen) 59 mg/dL (8.4-25.7); Calc. Creatinine Clearance 13 mL/min (70-130); Carbon Dioxide 30 mmol/L (23-31); Chloride 90 mmol/L (98-107); Estimated GFR 10; Glucose 200 mg/dL (80-115); Potassium 3.8 mmol/L (3.5-5.1); Sodium 130 mmol/L (136-145)
[2022-09-19] MEDS: HumaLOG 300 UNITS/3 ML VIAL SC PRN ×3 (06:16→17:05)
[2022-09-19] MEDS ORDERED: Insulin Glargine 30 UNITS/0.3 ML VIAL SC SCH (09:00)
[2022-09-19] MEDS: Furosemide 40 MG TAB PER TUBE SCH (09:55)
[2022-09-19] MEDS: Aspirin Chewable 81 MG TAB PER TUBE SCH (09:55)
[2022-09-19] MEDS: Glycopyrrolate 1 MG TAB PER TUBE SCH ×3 (09:55→21:14)
[2022-09-19] MEDS: Heparin 5,000 UNITS/ML VIAL SC SCH ×3 (09:55→21:15)
[2022-09-19] MEDS: levETIRAcetam 500 MG/5 ML VIAL SLOW IVP SCH ×2 (09:55→21:15)
[2022-09-19] MEDS: Amlodipine 5 MG TAB PER TUBE SCH (09:55)
[2022-09-19] MEDS: Isosorbide Dinitrate 5 MG TAB PER TUBE SCH ×2 (09:55→21:14)
[2022-09-19] MEDS: Carvedilol 25 MG TAB PER TUBE SCH ×2 (09:55→17:06)
[2022-09-19] MEDS: Pantoprazole 40 MG VIAL IVP SCH ×2 (09:56→21:14)
[2022-09-19] MEDS: Senokot S 8.6-50 MG TAB PO SCH ×2 (09:56→21:14)
[2022-09-19] MEDS: Acetaminophen 325 MG TAB PER TUBE PRN (13:06)
[2022-09-19] MEDS ORDERED: Pancrelipase DR 12,000 1 CAP FS PRN (14:00)
[2022-09-19] MEDS ORDERED: Sodium Bicarbonate Tab 325 MG TAB PER TUBE PRN (14:00)
[2022-09-19] MEDS: Scopolamine 1.5 mg/72 hour Patch TD SCH (17:06)
[2022-09-19] MEDS: Polyethylene Glycol 3350 17 GM Packet PER TUBE SCH (21:14)
[2022-09-19] MEDS: Atorvastatin Calcium 40 MG TAB PER TUBE SCH (21:15)
[2022-09-19] MEDS: Insulin Glargine 30 UNITS/0.3 ML VIAL SC SCH (21:15)
[2022-09-20 04:38] LABS: #Basophils 0.1 thou/uL (0.0-0.2); #Eosinphils 0.4 thou/uL (0.0-0.7); #Lymphocytes 1.7 thou/uL (1.20-3.40); #Monocytes 0.9 thou/uL (0.11-0.59); #Neutrophils 5.7 thou/uL (1.40-6.50); %Eosinophils 5.1 % (0.0-10.0); %Lymphocytes 19.2 % (21.0-51.0); %Monocytes 10.6 % (0.0-10.0); %Neutrophils 64.1 % (42.0-75.0); Hemoglobin 8.1 g/dL (14.0-18.0); Mean Corpuscular HGB CONC 33.3 g/dL (32.0-36.0); Mean Corpuscular Hemoglobin 30.9 pg (27.0-31.0); Mean Corpuscular Volume 92.7 fl (78.0-98.0); Mean Platelet Volume 8.6 fL (7.4-10.4); Platelet Count 275 thou/uL (130-400); RBC Distribution Width 13.4 % (11.5-14.5); Red Blood Cell (RBC) Count 2.61 mill/uL (4.70-6.10); White Blood Cell (WBC) Count 8.8 thou/uL (4.8-10.8)
[2022-09-20 05:13] LABS: Norovirus GI Negative (Negative); Norovirus GII Negative (Negative)
[2022-09-20 05:37] LABS: Anion Gap 13 mmol/L (10-20); BUN (Urea Nitrogen) 33 mg/dL (8.4-25.7); Calc. Creatinine Clearance 20 mL/min (70-130); Calcium 7.9 mg/dL (7.8-10.44); Carbon Dioxide 29 mmol/L (23-31); Chloride 92 mmol/L (98-107); Estimated GFR 17; Glucose 365 mg/dL (80-115); Potassium 4.1 mmol/L (3.5-5.1); Sodium 130 mmol/L (136-145)
[2022-09-20] MEDS: HumaLOG 300 UNITS/3 ML VIAL SC PRN ×4 (05:49→20:38)
[2022-09-20] MEDS: Amlodipine 5 MG TAB PER TUBE SCH (09:18)
[2022-09-20] MEDS: Carvedilol 25 MG TAB PER TUBE SCH ×2 (09:18→16:38)
[2022-09-20] MEDS: Aspirin Chewable 81 MG TAB PER TUBE SCH (09:19)
[2022-09-20] MEDS: Furosemide 40 MG TAB PER TUBE SCH (09:19)
[2022-09-20] MEDS: Glycopyrrolate 1 MG TAB PER TUBE SCH ×3 (09:19→20:40)
[2022-09-20] MEDS: Isosorbide Dinitrate 5 MG TAB PER TUBE SCH ×2 (09:20→20:41)
[2022-09-20] MEDS: levETIRAcetam 500 MG/5 ML VIAL SLOW IVP SCH ×2 (09:20→20:41)
[2022-09-20] MEDS: Insulin Glargine 30 UNITS/0.3 ML VIAL SC SCH ×2 (09:20→20:39)
[2022-09-20] MEDS: Senokot S 8.6-50 MG TAB PO SCH ×2 (09:21→20:39)
[2022-09-20] MEDS: Pantoprazole 40 MG VIAL IVP SCH ×2 (09:21→20:42)
[2022-09-20] MEDS: Heparin 5,000 UNITS/ML VIAL SC SCH ×3 (09:22→20:41)
[2022-09-20] MEDS: Atorvastatin Calcium 40 MG TAB PER TUBE SCH (20:39)
[2022-09-20] MEDS: Polyethylene Glycol 3350 17 GM Packet PER TUBE SCH (20:41)
[2022-09-21] MEDS: HumaLOG 300 UNITS/3 ML VIAL SC PRN ×2 (05:41→11:27)
[2022-09-21 06:10] LABS: Anion Gap 13 mmol/L (10-20); BUN (Urea Nitrogen) 52 mg/dL (8.4-25.7); Calc. Creatinine Clearance 16 mL/min (70-130); Calcium 7.9 mg/dL (7.8-10.44); Carbon Dioxide 28 mmol/L (23-31); Chloride 91 mmol/L (98-107); Estimated GFR 12; Glucose 264 mg/dL (80-115); Potassium 4.3 mmol/L (3.5-5.1); Sodium 128 mmol/L (136-145)
[2022-09-21 07:02] LABS: #Basophils 0.1 thou/uL (0.0-0.2); #Eosinphils 0.6 thou/uL (0.0-0.7); #Neutrophils 6.7 thou/uL (1.40-6.50); %Basophils 0.8 % (0.0-1.0); %Lymphocytes 19.5 % (21.0-51.0); %Monocytes 9.5 % (0.0-10.0); %Neutrophils 64.2 % (42.0-75.0); Hemoglobin 8.2 g/dL (14.0-18.0); Mean Corpuscular HGB CONC 32.6 g/dL (32.0-36.0); Mean Corpuscular Hemoglobin 30.5 pg (27.0-31.0); Mean Corpuscular Volume 93.5 fl (78.0-98.0); Mean Platelet Volume 9.1 fL (7.4-10.4); Platelet Count 309 10x3/uL (130-400); RBC Distribution Width 13.4 % (11.5-14.5); White Blood Cell (WBC) Count 10.5 10x3/uL (4.8-10.8)
[2022-09-21 08:11] VITALS: TEMP 98.7
[2022-09-21] MEDS: Aspirin Chewable 81 MG TAB PER TUBE SCH (08:14)
[2022-09-21] MEDS: Heparin 5,000 UNITS/ML VIAL SC SCH ×2 (08:14→16:06)
[2022-09-21] MEDS: Glycopyrrolate 1 MG TAB PER TUBE SCH ×2 (08:14→16:05)
[2022-09-21] MEDS: Insulin Glargine 30 UNITS/0.3 ML VIAL SC SCH (08:15)
[2022-09-21] MEDS: levETIRAcetam 500 MG/5 ML VIAL SLOW IVP SCH (08:16)
[2022-09-21] MEDS: Senokot S 8.6-50 MG TAB PO SCH (08:17)
[2022-09-21] MEDS: Pantoprazole 40 MG VIAL IVP SCH (08:17)
[2022-09-21] MEDS: Furosemide 40 MG TAB PER TUBE SCH (08:17)
[2022-09-21] MEDS ORDERED: Heparin 10,000 UNITS/ 10 ML VIAL ONE (08:44)
[2022-09-21] MEDS: Isosorbide Dinitrate 5 MG TAB PER TUBE SCH (09:27)
[2022-09-21] MEDS: Carvedilol 25 MG TAB PER TUBE SCH ×2 (09:27→16:05)
[2022-09-21] MEDS: Amlodipine 5 MG TAB PER TUBE SCH (09:27)
[2022-09-21 16:05] VITALS: BP 148/67
[2022-09-21] MEDS: Epoetin (ESRD) 20,000 UNITS/ML SC SCH (16:06)
== END 2022-09-21 16:35 | disposition home or self-care (01) | DRG 673 ==
LOC: ERS 10:29 → T4-B 14:36 → OBSVTOIN 08-26 16:05 → NEURO 08-30 11:57
PROVIDERS: ADMIT Internal Medicine; ATTEND Internal Medicine
PROC: 0JH63XZ Insertion of Tunneled Vascular Access Device into Chest Subcutaneous Tissue and Fascia, Percutaneous Approach (ICD-10-PCS; 2022-08-25)
PROC: 02HV33Z Insertion of Infusion Device into Superior Vena Cava, Percutaneous Approach (ICD-10-PCS; 2022-08-25)
PROC: B548ZZA Ultrasonography of Superior Vena Cava, Guidance (ICD-10-PCS; 2022-08-25)
PROC: 031C0ZF Bypass Left Radial Artery to Lower Arm Vein, Open Approach (ICD-10-PCS; principal; 2022-08-29)
PROC: 0WHG43Z Insertion of Infusion Device into Peritoneal Cavity, Percutaneous Endoscopic Approach (ICD-10-PCS; 2022-08-29)
PROC: 3E1M39Z Irrigation of Peritoneal Cavity using Dialysate, Percutaneous Approach (ICD-10-PCS; 2022-08-29)
PROC: 3E0336Z Introduction of Nutritional Substance into Peripheral Vein, Percutaneous Approach (ICD-10-PCS; 2022-09-04)
PROC: 0DB78ZX Excision of Stomach, Pylorus, Via Natural or Artificial Opening Endoscopic, Diagnostic (ICD-10-PCS; 2022-09-06)
PROC: 0JH63XZ Insertion of Tunneled Vascular Access Device into Chest Subcutaneous Tissue and Fascia, Percutaneous Approach (ICD-10-PCS; 2022-09-07)
PROC: 02HV33Z Insertion of Infusion Device into Superior Vena Cava, Percutaneous Approach (ICD-10-PCS; 2022-09-07)
PROC: B548ZZA Ultrasonography of Superior Vena Cava, Guidance (ICD-10-PCS; 2022-09-07)
PROC: 0DH63UZ Insertion of Feeding Device into Stomach, Percutaneous Approach (ICD-10-PCS; 2022-09-07)
PROC: 30233N1 Transfusion of Nonautologous Red Blood Cells into Peripheral Vein, Percutaneous Approach (ICD-10-PCS; 2022-09-12)
DX: I12.0 Hypertensive chronic kidney disease with stage 5 chronic kidney disease or end stage renal disease (principal); G93.41 Metabolic encephalopathy; I63.81 Other cerebral infarction due to occlusion or stenosis of small artery; N18.6 End stage renal disease; N17.9 Acute kidney failure, unspecified; G40.109 Localization-related (focal) (partial) symptomatic epilepsy and epileptic syndromes with simple partial seizures, not intractable, without status epilepticus; G81.91 Hemiplegia, unspecified affecting right dominant side; Z51.5 Encounter for palliative care; I25.10 Atherosclerotic heart disease of native coronary artery without angina pectoris; E78.5 Hyperlipidemia, unspecified; H40.9 Unspecified glaucoma; H26.9 Unspecified cataract; E11.22 Type 2 diabetes mellitus with diabetic chronic kidney disease; D63.1 Anemia in chronic kidney disease; K21.9 Gastro-esophageal reflux disease without esophagitis; G93.89 Other specified disorders of brain; Z20.822 Contact with and (suspected) exposure to COVID-19; E11.65 Type 2 diabetes mellitus with hyperglycemia; K22.2 Esophageal obstruction; K31.7 Polyp of stomach and duodenum; R47.1 Dysarthria and anarthria; R13.12 Dysphagia, oropharyngeal phase; Z88.8 Allergy status to other drugs, medicaments and biological substances; Z79.4 Long term (current) use of insulin; Z79.82 Long term (current) use of aspirin; Z79.899 Other long term (current) drug therapy; Z98.890 Other specified postprocedural states
CPT/HCPCS: 36415; 36416; 36430; 36600; 70450; 70551; 71045; 74018; 80048; 80053; 80061; 82805; 83036; 83605; 83735; 83880; 84484; 85014; 85018; 85025; 86580; 86704; 86850; 86900; 86901; 87040; 87324; 87340; 87449; 87505; 87798; 87811; 88305; 88342; 90935; 93005; 93010; 93970; 95712; 95819; 95957; 96374; 99284; C1751; C1752; C1776; C9113; G0257; G0378; J0171; J0360; J0690; J1100; J1642; J1644; J1815; J1953; J2001; J2250; J2370; J2405; J2543; J2704; J2720; J3490; J7050; J7120; P9016; Q4081; Q9967; S0020; U0003; U0005